=== PATIENT | female | born 1955 | race Caucasian/White ===

== ENCOUNTER 2020-02-16 07:23 | Day surgery (SDC) | payer BC ==
--- OUTSIDE RECORDS SUMMARY | 2020-02-16 07:30 | XMS REPORT | Clinical Summary ---
:1955 Author Organization [facility] Address [address] [place] [address] Care Team Providers Name Role Phone Provider, Unknown Primary Care Provider Unavailable Allergies Active Allergy Reactions Severity Noted Date Comments Codeine Rash Low 09/04/2008 Medications Medication Sig Dispensed Refills Start Date End Date Status clonAZEPAM (KlonoPIN) 1 Take 1 mg by 0 Active MG tablet mouth daily. cyanocobalamin (VITAMIN Take by mouth. 0 Active B-12) 1000 MCG tablet omeprazole (PriLOSEC) Take 20 mg by 0 Active 20 MG capsule mouth daily. magnesium oxide Take 400 mg by 0 Active (MAG-OX) 400 mg (241.3 mouth daily. mg magnesium) tablet ascorbic acid, vitamin Take 500 mg by 0 Active C, (VITAMIN C) 500 MG mouth daily. tablet thyroid,pork (CORK COMPOUNDER Take 75 mg by 0 Active THYROID ORAL) mouth daily. traMADoL (ULTRAM) 50 mg Take 50 mg by 0 Active tabletIndications: mouth every 6 acute pain (six) hours as needed for moderate pain .acute pain. 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 Encounters Date Type Specialty Care Team Description 01/13/2020 Hospital Encounter Radiology Yanez, Aidee Bila teral thoracic back A., CORK COMPOUNDER pain, unspecified Mirza Lan chronicity MD Valdemar 01/12/2020 Travel 01/08/2020 Orders Only Transplant Yanez, Aidee Bilateral thoracic back A., CORK COMPOUNDER pain, unspecifi ed chronicity (Neris kelsey Dx) 01/07/2020 Office Visit Transplant Edyta, Rafik Hyperlipidem Valdemar barreto MD unspecified Michele Salguero MD hyperlip idemia type (Primary Dx) 01/07/2020 Travel 01/02/2020 Hospital Encounter Radiology Mirza Lan MD 01/02/2020 Hospital Encounter Radiology Mirza Lan MD 12/30/2019 Telephone Transplant Mima Redding RN Referral - Hepatobiliary Txp 12/30/2019 Telephone Transplant Luna Garner, Referral - Hepatobiliary MA Txp after 02/15/2019 Social History Tobacco Use Types Packs/Day Years Used Date Never Smoker Smokeless Tobacco: Never Used Alcohol Use Drinks/Week oz/Week Comments Never Alcohol Habits Answer Date Recorded How often do you have a drink containing alcohol? Never 12/23/2018 How many drinks containing alcohol do you have on a typical Not asked day when you are drinking? How often do you have six or more drinks on one occasion? No t asked Sex Assigned at Date Recorded Not on file Job Start Date Occupation Industry Not on file Not on file Not on file Travel History Travel Start Travel End No recent travel history available. Last Filed Vital Signs Vital Sign Reading Time Taken Comments Blood Pressure 159/66 01/07/2020 2:52 PM CDT Pulse 73 01/07/2020 2:52 PM CDT Temperature 36 C (96.8 F) 01/07/2020 2:52 PM CDT Respiratory Rate 17 01/07/2020 2:52 PM CDT Oxygen Saturation 99% 01/07/2020 2:52 PM CDT Inhaled Oxygen Concentration - - Weight 59.4 kg (131 lb) 01/13/2020 5:42 PM CDT Height 162.6 cm (5' 4") 01/13/2020 5:42 PM CDT Body Mass Index 22.49 01/13/2020 5:42 PM CDT Plan of Treatment Health Maintenance Due Date Last Done Comments BREAST CANCER SCREENING 2003 COLONOSCOPY SCREENING 2003 SHINGLES VACCINES (#1) 2003 65+ PNEUMOCOCCAL VACCINE (1 of 2 - PCV13) 2018 INFLUENZA VACCINE 03/25/2020 Procedures Procedure Name Priority Date/Time Associated Diagnosis Comme nts MRI LUMBAR SPINE W Routine 01/13/2020 6:30 Bilateral thoracic Results for this WO CONTRAST PM CDT back pain, procedure are i n unspecified the results chronicity section. ESTIMATED GFR Routine 01/13/2020 5:57 Results fo r this PM CDT procedure are i n the results section. POC CREATININE Routine 01/13/2020 5:57 Results f or this PM CDT procedure are i n the results section. MRI ABD/PELVIC Routine 12/25/2019 8:58 Results f or this EXTERNAL STUDY AM CDT procedure are in the results section. CT ABD/PELVIC Routine 12/18/2019 9:05 Results fo r this EXTERNAL STUDY AM CDT procedure are in the results section. after 02/15/2019 Results MRI Lumbar Spine W Wo Contrast (01/13/2020 6:30 PM CDT) Specimen Narrative Performed At This result has an attachment that is no t available. EXAMINATION: MRI LUMBAR SPINE W WO CONTRAST [facility] CLINICAL HISTORY: M54.6 Pain in thoracic spine, back p ain COMPARISON: None TECHNIQUE: Multiplanar multisequence non enhanced and contrast enhanced MRI examination was performed of the lumbar spine. FINDINGS: There are 5 non-rib bearing lumbar type vertebrae. No fracture. No subluxation. No suspicious osseous lesions. No marrow edema. Conus medullaris terminates at the level of L2. No abn ormal enhancement. Evaluation of the visualized soft tissue s demonstrates no mass, adenopathy or aneurysm. Axial images through the disc spaces demonstrate the f ollowing: L1-L2: No significant posterior disc dis ease, spinal canal, subarticular zone, or neural foraminal stenosis. L2-L3: No significant posterior disc dis ease, spinal canal, subarticular zone, or neural foraminal stenosis. L3-L4: Mild bilateral subarticular zone stenosis secondary to small disc bulge and facet arthropathy. No significant spinal canal or neural foraminal stenosis. L4-L5: Small disc bulge with superimpose d small central disc protrusion and mild facet arthropathy with ligament flavum infolding contributes to moderate bilateral subarticular zone stenosis with contac t of the traversing L5 nerve roots, with potential compression of the traversing right L5 n erve root. There is mild right greater than left neural foraminal stenosis secondary to small disc bulge and endplate osteophytes. There is mild spinal canal stenosis. L5-S1: No significant posterior disc dis ease, spinal canal, subarticular zone, or neural foraminal stenosis. IMPRESSION: 1. Degenerative changes of the lumbar spine, notably a t L4-5 as detailed above. [id number] Procedure Note Hm Interface, Radiology Results Incoming - 01/13/2020 7:47 PM CDT EXAMINATION: MRI LUMBAR SPINE W WO CONTRAST CLINICAL HISTORY: M54.6 Pain in thoracic spine, back pain COMPARISON: None TECHNIQUE: Multiplanar multisequence non enhanced and contrast enhanced MRI examination was performed of the lumbar spine. FINDINGS: There are 5 non-rib bearing lumbar type vertebrae. No fracture. No subluxation. No suspicious osseous lesions. No marrow edema. Conus medullaris terminates at the level of L2. No abnormal enhancement. Evaluation of the visualized soft tissue s demonstrates no mass, adenopathy or aneurysm. Axial images through the disc spaces dem onstrate the following: L1-L2: No significant posterior disc dis ease, spinal canal, subarticular zone, or neural foraminal stenosis. L2-L3: No significant posterior disc dis ease, spinal canal, subarticular zone, or neural foraminal stenosis. L3-L4: Mild bilateral subarticular zone stenosis secondary to small disc bulge and facet arthropathy. No significant spinal canal or neural foraminal stenosis. L4-L5: Small disc bulge with superimpose d small central disc protrusion and mild facet arthropathy with ligament flavum infolding contributes to moderate bilateral subarticular zone stenosis with contact of the traversing L5 nerve roots, with potentia l compression of the traversing right L5 n erve root. There is mild right greater than left neural foraminal stenosis secondary to small disc bulge and endplate osteophytes. There is mild spinal canal stenosis. L5-S1: No significant posterior disc dis ease, spinal canal, subarticular zone, or neural foraminal stenosis. IMPRESSION: 1. Degenerative changes of the lumbar sp ine, notably at L4-5 as detailed above. [id number] Performing Organization Address City/State/Zipcode Phone Number [facility] [address] [place] [address] Estimated GFR (01/13/2020 5:57 PM CDT) Estimated GFR 90 mL/min/1.73 [facility] Comment: m2 [facility]OSPITAL Catergory Units Interpretation G1 >=90 Normal or high G2 60-89 Mildly decreased G3a 45-59 Mildly to moderately decreas ed G3b 30-44 Moderately to severely decre ased G4 15-29 Severely decreased G5 <15 Kidney failure The eGFR was calculated using the Chronic Kidney Disea se Epidemiology Collaboration (CKD-EPI) equation. Interpretation is based on recommendations of the National Kidney Foundation-Kidney Disease Outcomes Jhonny lity Initiative (NKF-KDOQI) published in 2014. Specimen Blood Performing Organization Address City/[facility]/Zipcode Phone Number [facility] DEPARTMENT OF PATHOLOGY AND [address] [place], [place] [address] [facility] [address] [place] [address] POC creatinine (01/13/2020 5:57 PM CDT) POC creatinine 0.7 0.5 - 0.9 [facility] Comment: mg/dl HOSPITAL Manager [employer] Name: Mingo Seymour Device ID: [id number] Specimen Blood Performing Organization Address [facility]/Zipcode Phone Number [facility] DEPARTMENT OF PATHOLOGY AND [address] [place] [phone] [facility] [address] [place] [id number] MRI Abd/Pelvic External Study (12/25/2019 8:58 AM CDT) Specimen Narrative Performed At This exam was not acquired at a [facility] facility and has not been [facility] interpreted by a [facility] Provider. T he exam was imported into our imaging system. Performing Organization Address [facility] Phone Number [facility] [address] [place] [address] CT Abd/Pelvic External Study (12/18/2019 9:05 AM CDT) Specimen Narrative Performed At This exam was not acquired at a [facility] facility and has not been [facility] interpreted by a [facility] Provider. T he exam was imported into our imaging system. 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
--- OUTSIDE RECORDS SUMMARY | 2020-02-16 07:32 | XMS REPORT | Continuity of Care Document ---
:1955 Author Organization [facility] t Address [facility] [place] [address] Care Team Providers Name Role Phone CHAY Primary Care Physician Unavailable IVAN Attending Clinician Unavailable SYSTEM, NOT IN Attending Clinician Unavailable SKYE HENAO Attending Clinician Unavailable СВЕТЛАНА Attending Clinician Unavailable REID Attending Clinician Unavailable Skye Henao MD Attending Clinician Robina DENIS, R Attending Clinician Unavailable Valdemar Lan MD Attending Clinician Noemy MASSEY Attending Clinician Flaco THOMAS Attending Clinician Carolin Espitia RN Attending Clinician IRENE HERNANDEZ Attending Clinician Unavailable Irene Hernandez MD Attending Clinician Ivan MASSEY Attending Clinician Chay MASSEY Attending Clinician CHAY Attending Clinician Unavailable Charlie DENIS Attending Clinician Unavailable Elvin DENIS Attending Clinician Unavailable FLACO Attending Clinician Unavailable Devon SAHU, S Attending Clinician HERMELINDA Attending Clinician Unavailable Hermelinda MASSEY Attending Clinician Fontillas PT Attending Clinician Patrick COLLAZOP Attending Clinician Kenneth KAHN Attending Clinician Unavailable Kenneth Kahn RN Attending Clinician Unavailable Lilliam Yanez NP Attending Clinician Efren Paul NP Attending Clinician Vahid DENIS Attending Clinician Unavailable Pascual ACUNA Attending Clinician Unavailable Cheikh Cueto MD Attending Clinician IRENE HERNANDEZ Admitting Clinician Unavailable Payers Payer Name Policy Type Policy Number Effective Date Expiration Date S sher[place] [id number] 2016 POS 00:00:00 BCBSBCBS xxxxxxxxxxxx 2015 [place] CHOICE 00:[place]:00 [employer] PPO/FEDERAL EMPL PPOxxxxxxxxxxx 2015-Pres entPPO Problems Condition Condition Condition Status Onset Resolution Last Treating Co mments Source Name Details Category Date Date Treatment Clinician Date Pancreatic Pancreatic Disease Active 0 M D cancer cancer 02-02 Anderso 00:00: n 00 Cardiac Cardiac Disease Active murmur murmur 01-14 Anderso 00:00: n 00 Hypothyroi Hypothyroi Disease Active 0 M D dism dism 01-14 Anderso 00:00: n 00 Fatty Fatty Disease Active liver liver 01-14 Anderso 00:00: n 00 Mass of Mass of Disease Active Overview: pancreas pancreas 01-14 Added Kamran o 00:00: automatic n 00 ally from request for surgery [id number] Hyperlipid Hyperlipid Disease Active Overview : MD rangel emia 7- ICD10 Anderso 00:00: Diagnosis n 00 Term [place] Hand UtilityIC D10 Diagnosis Term [place] Hand Utility Alopecia Alopecia Disease Active Overview: 3-13 ICD10 Anderso 00:00: Diagnosis n 00 Term [place] Hand UtilityIC D10 Diagnosis Term [place] Hand Utility Allergies, Adverse Reactions, Alerts Allergy Allergy Status Severity Reaction(s) Onset Inactive Treating Comm ents Source Name Type Date Date Clinician Codeine Propensi Active Rash [place] ty to 3-13 Methodi adverse 00:00: st reaction 00 s to drug Family History Family Member Diagnosis Comments Start Date Stop Date Source Natural father Prostate cancer MD Liane caba Natural father Skin cancer MD Andrew on Social History Social Habit Start Date Stop Date Quantity Comments [facility] Std Drinks [facility] Meth odist Alcohol Binge Sex Assigned At MD Andrew on Exposure to Not sure MD Vines SARS-CoV-2 (event) Tobacco use and 2020-02-03 2020-02-03 Never used MD Andrew on exposure 00:00:00 00:00:00 Alcohol intake 2020-02-03 2020-02-03 Lifetime MD Guerra n 00:00:00 00:00:00 non-drinker (finding) History SDCA 2018-12-23 2018-12-23 1 [place] Meth odist Alcohol Frequency 00:00:00 00:00:00 Smoking Status Start Date Stop Date Source Never smoker MD Vines Medications Ordered Filled Start Stop Current Ordering Indication Dosage Frequency Signature Comments Components Source Medication Medication Date Date Medication? Clinician (SIG) Name Name ascorbic 2020-0 Yes 500mg Take 500 MD acid 8-11 mg by Anderso (VITAMIN C) 19:14: mouth. n 500 mg 08 tablet traMADol 2020-0 Yes 50mg Take 50 mg MD (ULTRAM) 50 8-11 by mouth. And erso mg tablet 19:14: n 08 thyroid 2020-0 Yes 75mg Take 75 mg MD (ARMOUR 8-11 by mouth. Anderso THYROID) 15 19:14: n mg tablet 08 ALPRAZolam 2020-0 Yes .5mg Take 0.5 MD (XANAX) 0.5 8-11 mg by Anderso mg tablet 19:14: mouth n 08 nightly as needed. melatonin 3 2020-0 Yes 10mg Take 10 mg MD mg tablet 8-11 by mouth Kamran o 19:14: at n 08 bedtime. magnesium 2020-0 2020- No Take by citrate -11 08-11 mouth Anderso solution 19:13: 00:00 daily as n 59 :00 needed. Drink the content of one bottle (296 mL) orally as directed prior to surgery for bowel preparatio n. HYDROcodone 2020-0 Yes Pancreatic 1{tbl} Take 1 MD -acetaminop 8-11 cancer tablet by A maral sanderson ([place]) 00:00: mouth n 5 mg-325 mg 00 every 6 per tablet (six) hours as needed (cancer pain). tiZANidine 2020-0 Yes TAKE 1 MD (ZANAFLEX) 7-14 TABLET BY Brandon rso 4 mg tablet 00:00: MOUTH n 00 THREE TIMES DAILY NEEDED FOR 30 DAYS clonAZEPAM 2020-0 Yes 1mg QD Take 1 mg [place] (KlonoPIN) 7-07 by mouth Metho di 1 MG tablet 14:17: daily. st 46 cyanocobala 2020-0 Yes Take by Peter ston min 7-07 mouth. Methodi (VITAMIN 14:17: st B-12) 1000 46 MCG tablet omeprazole 2020-0 Yes 20mg QD Take 20 mg [place] (PriLOSEC) 7-07 by mouth Metho di 20 MG 14:17: daily. st capsule 46 magnesium 2020-0 Yes 400mg QD Take 400 Peter ston oxide 7-07 mg by Methodi (MAG-OX) 14:17: mouth st 400 mg 46 daily. (241.3 mg magnesium) tablet ascorbic 2020-0 Yes 500mg QD Take 500 [place] acid, 7-07 mg by Methodi vitamin C, 14:17: mouth st (VITAMIN C) 46 daily. 500 MG tablet thyroid,por 2020-0 Yes 75mg QD Take 75 mg Lass[place] k (SYSTEMS SPEC 7-07 by mouth Methodi THYROID 14:17: daily. st ORAL) 46 traMADoL 2020-0 Yes acute pain 50mg Q6H Take 50 mg [place] (ULTRAM) 50 7-07 by mouth Meth yuly mg tablet 14:17: every 6 st 46 (six) hours as needed for moderate pain .acute pain. 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 cap docusate 2014-0 2020- No 1{tbl} Take 1 MD sodium 7-24 08-11 tablet by Mari (Stool 00:00: 00:00 mouth n Softener) 00 :00 daily. 100 mg capsule Vital Signs Vital Name Observation Time Observation Value Comments Source WEIGHT 2020-02-03 14:21:00 58.106 kg WEIGHT 2020-02-03 14:21:00 58.106 kg WEIGHT 2020-01-27 12:39:00 59.1 kg WEIGHT 2020-01-27 12:39:00 59.1 kg WEIGHT 2020-01-16 13:54:00 59.376 kg WEIGHT 2020-01-16 13:54:00 59.376 kg Body weight 2020-02-03 19:21:00 58.106 kg Claude annika BMI 2020-02-03 19:21:00 22.90 kg/m2 MD Arce annika Systolic blood 2020-02-03 19:08:59 121 mm[Hg] pressure Diastolic blood 2020-02-03 19:08:59 76 mm[Hg] MD Rob derson pressure Heart rate 2020-02-03 19:08:59 72 /min Claude annika Body temperature 2020-02-03 19:08:59 36.61 Jovanna MD Santos nderson Respiratory rate 2020-02-03 19:08:59 18 /min MD Santos ndemehrdadon Oxygen saturation in 2020-02-03 19:08:59 100 /min MD Vines Arterial blood by Pulse oximetry Body height 2020-01-16 18:54:00 159.3 cm Claude annika Body height 2020-01-13 17:42:00 162.6 cm [place] [employer] Body weight 2020-01-13 17:42:00 59.421 kg [place] [employer] BMI 2020-01-13 17:42:00 22.49 kg/m2 [place] [employer] [facility] Systolic blood 2020-01-07 14:52:00 159 mm[Hg] [place] [employer] [place] pressure Diastolic blood 2020-01-07 14:52:00 66 mm[Hg] [place] [employer] pressure Heart rate 2020-01-07 14:52:00 73 /min [place] [employer] [facility] Body temperature 2020-01-07 14:52:00 36 Jovanna [place] [employer] Respiratory rate 2020-01-07 14:52:00 17 /min [place] [employer] [facility] Oxygen saturation in 2020-01-07 14:52:00 99 /min [place] [employer] Arterial blood by Pulse oximetry Procedures Procedure Date / Time Performing Clinician Source Performed CYTOLOGY IMAGE-GUIDED FNA 2020-01-27 19:02:00 Radha Morgan INTERPRETATION Lindsey ENDOSCOPY NOTE RESULTS 2020-01-27 18:30:10 MD Danielle Morganrson Lindsey UPPER GASTROINTESTINAL 2020-01-27 18:29:00 MD Danielle Morganrson ENDOSCOPY OF ESOPHAGUS, Lindsey STOMACH, OR DUODENUM ANDJ ADJACENT STRUCTURES, WITH ENDOSCOPIC ULTRASOUND EXAMINATION HC COVID19 AUTOMATED PCR 2020-01-25 15:48:[address] CHEST ABDOMEN PELVIS W 2020-01-16 15:29:09 Tiffanie Oh MD WO CONTRAST POC CREATININE 2020-01-16 15:04:00 Tiffanie Oh MD COMPLETE BLOOD COUNT W/ 2020-01-16 12:27:00 Tiffanie Oh MDrson INDICES COMPREHENSIVE METABOLIC 2020-01-16 12:27:00 Tiffanie Oh MDrson PANEL CANCER ANTIGEN 19-9 2020-01-16 12:27:00 Tiffanie Oh MD PROTHROMBIN TIME 2020-01-16 12:27:00 Tiffanie Oh MD PARTIAL THROMBOPLASTIN TIME 2020-01-16 12:27:00 Tiffanie Oh MD TYPE AND SCREEN 2020-01-16 12:27:00 Tiffanie Oh MD HEMOGLOBIN A1C 2020-01-16 12:27:00 Tiffanie Oh MD GLUCOSE LEVEL 2020-01-16 12:27:00 Tiffanie Oh MD ELECTROLYTE PANEL 2020-01-16 12:27:00 Tiffanie Oh MD Andjolantao n SERUM CREATININE 2020-01-16 12:27:00 Tiffanie Oh MD .GLOMERULAR FILTRATION RATE 2020-01-16 12:27:00 Tiffanie Oh MD CALCIUM LEVEL TOTAL 2020-01-16 12:27:00 Tiffanie Oh MD Claudemitchel roblero ALBUMIN LEVEL 2020-01-16 12:27:00 Tiffanie Oh MD ALKALINE PHOSPHATASE 2020-01-16 12:27:00 Tiffanie Oh MD ALANINE AMINOTRANSFERASE 2020-01-16 12:27:00 Tiffanie Oh MD ASPARTATE AMINOTRANSFERASE 2020-01-16 12:27:00 Tiffanie Oh TOTAL PROTEIN 2020-01-16 12:27:00 Tiffanie Oh MD FRACTIONATED BILIRUBIN 2020-01-16 12:27:00 Tiffanie Oh MD derson ABORH 2020-01-16 12:27:00 Tiffanie Oh MD ANTIBODY SCREEN 2020-01-16 12:27:00 Tiffanie Oh MD BLOOD UREA NITROGEN 2020-01-16 12:27:00 Tiffanie Oh MD Claude son CLOT EXPIRATION DATE 2020-01-16 12:27:00 Tiffanie Oh MD Brandon rson TMP INTERPRETATION ANTIBODY 2020-01-16 12:27:00 Tiffanie Oh MD SCREEN NEGATIVE CONFIRM ABORH TYPE 2020-01-16 12:26:00 Tiffanie Oh MD Kamran on HC 2019-NCOV COVID-19 2020-01-14 23:36:00 Tiffanie Oh MD And erson MRI LUMBAR SPINE W WO 2020-01-13 18:30:00 Mirza Lan CONTRAST POC CREATININE 2020-01-13 17:57:00 Mirza Lan ESTIMATED GFR 2020-01-13 17:57:00 Mirza Lan OSI MRI ABDOMEN 2019-12-26 04:41:48 Kayode Cueto MD Kamran on MRI ABD/PELVIC EXTERNAL 2019-12-25 08:58:00 Mirza [address]Y OSI [address] ABDOMEN 2019-12-19 04:42:11 Kayode Cueto MD Kamran on CT ABD/PELVIC EXTERNAL 2019-12-18 09:05:00 Mirza Lan STUDY OSI NUCLEAR DIAGNOSTIC EXAM 2019-12-18 04:42:[address], MD OSI US ABDOMINAL COMPLETE 2019-12-17 04:42:46 Kayode Cueto MD Plan of Care Planned Activity Planned Date Details Comments Source Future Scheduled 2020-03-25 INFLUENZA VACCINE [place] cyndi [employer] [facility] Test 00:00:00 [code = INFLUENZA VACCINE] Future Scheduled 2018 65+ PNEUMOCOCCAL [place] [employer] [facility] Test 00:00:00 VACCINE (1 of 2 - PCV13) [code = 65+ PNEUMOCOCCAL VACCINE (1 of 2 - PCV13)] Future Scheduled 2003 BREAST CANCER [facility] thodist Test 00:00:00 SCREENING [code = BREAST CANCER SCREENING] Future Scheduled 2003 COLONOSCOPY SCREENING Ho michelle [employer] [facility] Test 00:00:00 [code = COLONOSCOPY SCREENING] Future Scheduled 2003 SHINGLES VACCINES (#1) H justine [facility] Test 00:00:00 [code = SHINGLES VACCINES (#1)] Encounters Start End Encounter Admission Attending Care Care Encounter Source Date/Time Date/Time Type Type Clinicians Facility Department ID 2020-02-03 Outpatient MDA MDA [id number] 15:54:58 Anderso n 2020-01-27 Outpatient DESHPANDE, MDA MDA [id number] 12:56:49 WILMER Anderso n 2020-01-27 Outpatient DESHPANDE, MDA MDA [id number] 12:56:49 WILMER Anderso n 2020-01-13 Outpatient SYSTEM, MDA MDA [id number] 10:49:58 PROVIDER Kamranjolanta hanna 2020-01-05 Outpatient MDA MDA [id number] 09:22:54 Anderso cyndi 2020-04-15 2020-04-15 Outpatient EL SMAGLO, MDA MDA [id number] 00:00:00 00:00:00 CINDY hanna 2020-04-14 2020-04-14 Outpatient BENJAMIN CAGLE MDA MDA [id number] 00:00:00 00:00:00 Kamran hanna 2020-04-14 2020-04-14 Outpatient EL BENJAMIN SOTOMAYOR MDA MDA [id number] 00:00:00 00:00:00 Kamran o cyndi 2020-02-26 2020-02-26 Outpatient EL REID, MDA MDA [id number] 00:00:00 00:00:00 FATOU Brandon rso n 2020-02-24 2020-02-24 Outpatient EL REID, MDA MDA [id number] 00:00:00 00:00:00 FATOU Brandon rso n 2020-02-03 2020-02-03 Outpatient EL SMAGLO, MDA MDA [id number] 13:44:46 15:58:16 CINDY Kamran o n 2020-01-27 2020-01-27 Outpatient EL BONILLA MDA Mahesh/Hep/Nu [id number] 12:00:00 15:59:00 lul HERNANDEZ 2020-01-26 2020-01-26 Outpatient BRITTANY GAONA, MDA MDA [id number] MD 07:41:56 07:41:56 LUZ Taylor rso n 2020-01-25 2020-01-25 Outpatient BRITTANY GAONA, MDA MDA [id number] MD 10:28:10 10:49:16 KEENAARISTIDES Taylor rso n 2020-01-19 2020-01-19 Outpatient TIFFANIE OH MDA MDA [id number] MD 12:49:49 12:49:55 Kamran o n 2020-01-19 2020-01-19 Outpatient BRITTANY SHEN, MDA MDA [id number] MD 10:09:57 10:23:18 HOLLIE Kamran o n 2020-01-16 2020-01-19 Outpatient TIFFANIE CARNEY MDA MDA [id number] 14:53:03 07:58:51 Kamran o n 2020-01-16 2020-01-16 Outpatient TIFFANIE CARNEY MDA MDA [id number] 08:06:09 23:59:00 Kamran o n 2020-01-16 2020-01-16 Outpatient BRITTANY GAONA, MDA MDA [id number] MD 13:31:55 15:06:05 KEENAARISTIDES Taylor rso n 2020-01-16 2020-01-16 Outpatient TIFFANIE CARNEY MDA MDA [id number] 07:06:39 08:05:00 Kamran o n 2020-01-16 2020-01-16 Outpatient EL MDA MDA [id number] 07:05:32 07:06:23 Kamran o n 2020-01-16 2020-01-16 Outpatient TIFFANIE CARNEY MDA MDA [id number] 00:00:00 00:00:00 Kamran o n 2020-01-14 2020-01-14 Outpatient BRITTANY KAHN, MDA MDA [id number] 18:30:49 18:52:26 TU Kamran o n 2020-01-13 2020-01-13 Outpatient MILLIE, [facility] [id number] [place] 00:00:00 00:00:00 MIRZA Stewart i 2020-01-10 2020-01-10 Outpatient MDA MDA [id number] MD 23:26:22 23:26:22 Kamran o n 2020-01-10 2020-01-10 Outpatient MDA MDA [id number] MD 23:26:21 23:26:21 Kamran o n 2020-01-10 2020-01-10 Outpatient MDA MDA [id number] MD 23:26:20 23:26:20 Kamran o n 2020-01-10 2020-01-10 Outpatient MDA MDA [id number] MD 23:26:17 23:26:17 Kamran o n 2020-01-10 2020-01-10 Outpatient MDA MDA [id number] MD 23:26:17 23:26:17 Kamran o n 2020-01-07 2020-01-07 Outpatient MILLIE, [facility] [id number] [place] 00:00:00 00:00:00 MIRZA 678 Method i 2020-01-02 2020-01-02 Outpatient [facility] [id number] [place] 00:00:00 00:00:00 RAFIK 000 Method i 2020-01-02 2020-01-02 [id number] [place] 00:00:00 00:00:00 MIRZA 028 Method i 2019-08-26 2019-08-26 [facility] [id number] 12:01:00 23:59:00 Encounter Cheikh Pratt [id number] Aniwa [id number] Bryant [id number] Results Test Description Test Time Test Comments Results Result Comments Source Cytology Image-Guided FNA Interpretation 2020-01-28 22:09:00 Test Item Value Reference Range Interpretation Comme nts Gross h8zclYRtUAEei5njUCQlEyEbRAADk9miv066lNRnQSzaSjAjIcP7yJCqCVCaqGEzw9G4EHepeTMxYeLY pdvwwTt2a9eaV9pdpz4sMX0yYwIzARQkEWZsSVTsvqXnKTLgnREjSC2idqCKg55bpko6t8nzQZgjhJ7s QVQuQMDskDTpz3O3JYfwfTCtBREYu4YezKGhJN5sxoi Description 0w6rzNFbvt5ovc9YeAmReDGDmPYAlFMSfqbUzTCJupCUrHG1holFexos1c1adEWOwXh7yIESdaqlcL0q jkzSarPWrKjKazVOsP155oqoeudj9m6lqUFWhYk6evCmtI7sbeyFwtOFxZiNroFRzCQCcrRNXfEWqalO dkWI7jYdtUuHfOMErm33xzatpX0tqyqRksRJdSrCcpO (test code = UqF0ekRu4iZ040XBDtOIqvo0wga1SbVqObCVMtSXPuFVSaaeMtRTQjI13uKVKHN179XLVqENHtMXLjn4 bgf1jcD3tbdeVipXXpYyTmaRSxZDAaIQd7rX0Xm6ppi3lvdoYdbZY1OZWiUWWhV3QyIU8iFRGveGYcK1 lbVTNcKPjapnNqrfT1HJTdpHAqPEpehpNbApHiS8MdX [id number]) Y3gJUgjdEPdEhQ2SPTbUHB9JOyaTDAtZMjxGxj6YBN7D8slHLK7Z2mpggMdofXhZNKkxDO5HxhbexMdR kqvN8LpWR07HSggwVQeHpd3XJHgZQr7FIzpAJIcRPBeGpu4WMj4H5puYYXiWEPhG3UySA1nPVGuHgl4T JFlRNzzawIbJHL2NPfmLSUxRIQ8RUVorIHxOwo7FIHt PLR2X7fpbaQyamA1Y3wogLSrFFZjT2zwEQHzZFzgQ0ShJC0nJRgbTyu0WYK1JVrcmqJrYDf1ZRlbSPOe YQo4MSDhfXMjVeR2KCEuHDN5ZLtfsoElkqV1MClulURtODrgZ6srLMXqELxiS9DlTO2dCMsfKsx6UPLf XwwkjtTiEcCxKXxvUHRwVmKxKEYydVYaYtT6OSHnTQH aCFruxkNyvdFwNBqopEDeZeS0T6oaBTFvCNSzD6VaUA5uUPNnTgq9HHU7BOtepsBtWYrifcZeygVrDfe 7ICF7JYf9Hlzkn5C4eVKwyUXrhFhpotEtpMHyBMxzIhWiI719GLXaTHuiOHNkszqnShf5o9jiFjTrUCP siC2iDWJ7nCkffkYkfZJkMMbmXjT6M489DQS3VDgkEP OvmvmjFDt2s2akWxGjXLNlvG4mJVX3dY7UIkndPHBiqpdpNWr8KWcdJKYxgmcjApJ0SResFZAczIl6SY atRWZaarB6GabcXZInfGjhZWwjQTFoFznrACmyJBOkRGC1PwNnAGZfz7Glspl6AtXkMgJeRKBYXsichO OhBIX7YXF5JoJyXZTrVoezWZXeWB6lrEweaSh8yXaxZ BTwavI6bNNpXJjvv0njUWL5u5vbqglrTRBaHLdeBa0heMKadYqbAeOgMLWnVYc9xS48FQIqxC3arMYyP Yx7PMXncrKchVwvxJ8cPrQnIFIIjFQkcF4rzgShnKZvD1WmUEA5TOPmrqFeMEDaJuTqRCToiedtVVIZT HEeK7YabI8tT8rwGPVpRRQzhaKzKEAmjKrphQ4dFeIM UAtnUDFxPKPLZYxbGHOqj8JhCYZcibAHBFIcK0MugYZjQYxyR7LbTTfzNSKcyo3ioVvuJjAgNK6iSO0j YGOzBKSxPjCvVRUtgarpLQKzG6s1XZlwCbkcBE4cZQszSaXyLA1yRZSqznURpL2vZTqeaVIyCTVhVJIg rLKdoCCrf3Gag6HmB5uwWD8dAFDsjNMfC6lgh4YoUF8 wFECyMKNnt6KfP1GbbVOewXHhuWApcNJutFDsbYHjuTKdQLZ oDGigSYHhJgLjpYTwhQneQFY1Ik9= Immediate Adequate cellularity, favor malignant Assessment (test code = 9837) Major MALIGNANT A Classificati on (test code = 9839) Diagnosis j5kzeEYdJBYzwLH7NTVdDTCgx4pnb5UvjRIjrAVkUVyimZVxptGnxw40ePQ7kX50DG0mKUVfZyQ0IZRt pgT4Avq8XTIpRTHzrIWxS474k9mpg5phxvVgwPL2fHiqGPJrMLQbYRqpZXAsGhInAL4fDHUmP1ViCRAv ODrtQDWyPUSuvfItuoApMSokEAOfmQogUFVsn267NWG (test code = pZswoOORiuGt6FqBojCcrUlUqJUFKZ4JPNSIJPRMSARQQFrDETPPXHANRQBHCZ6IDRtVWEn8DCWNQLHH LGQ6ZG5COH8kSWBUlng0= 34) Comment l7dnqXAaUJCuwGO5XDZlGIQtd3ogp9XmkIHacQPrRIggoZFwzpMgmi67hBX3xO58YU3uGRLsMhH7PSFu pgR1Pjl2QWUtHYDzmAAbG510i0csp8sohfAqvXA8uWztQLGqWCJgYGsnPNZyZdJfLIvkHMWfoRmkRzcx L6ouhFKlwEQtOQUjf52qpGVfdt7wOADxroDusWF8fF8 (test code = zhET3r0psspInBC3ym6ycTtS1kENzPbakGToaUCwjX93xs9qiRugdC XJ9 9835) Retained/Bio s2conCXmOQUsiKC5BEZpGDZoc9dyn0RwnOOsoGOoQIzvgURzyoWqfn42tKJ3nN60IL7uFBDoWiT9MVYc neF5Tjo8LOYuCFMwbWTsK403s7bxl7rymoSrtQP4gFuoMUNdTUQpCNyyMULvXaHsZsK8FGkzHAI1VVNe qnivrPrfYGLSvN2xTIJhe6Ayi84zYWFeWhJ8MWDlpqP marker ABSbbYABvg6UcTuDcSTEdmiynnYVqcZUtHRZby74gpkcieuTAPOU5jQ4qMmYlwDReRWgiPmUyGHebqfb pMIWZESqrJ5FiaRGAoO4dgavpHp4biAKqTC1SQSPWCQG9KH4dZBQjuiWOPSyuDGO4XWtfbr76QJB7x8a iqLBiDIquIksvhIZnxpG0GLtDGRRKMNcJFrGuXP4vNU Testing aWD1GRKEiKOjmtLVH5KEzuzBL6f9qquJDsg7w6ICvxRYL2pG7ks6burNQnTUzxNjnkzDWwfbT9SJuMTD KDMEyECzBmPJ2gCTgXB3VSKuX7TeT8TuH0GTwauYcsNizgnhCsoOVaKnExuU9axLaokO4jTvAoEWqkTE XjJylAFTUYLJvhXXBqg4OxD7K2XNHyCIbhq6szEFHdV (test code = Ontb2XkVWiJLOAHDR9HIN2erIW1GOjWZGJFF8iGaXO7BzmcfGZ6Yd50WASbSUUpeDOrJEprD668Hz61I YShHKgio6bpPOExHDcra9TfVEqUWWLCME6DTQ7obIS7ELpSTIWSCHpoQKB6AZtqbQI1u0orpZZje3h9I JyzDKZ9cTpteXHpyvurazZwJOVzivtxcDIykUejAGow 9838) FKXprEQjIWFeI61TLsVIJHNYD42GJZPTHTXDT1TPJ7oZSZE8LaqtaBW3QW8oICL0XLskXALaI68HHdAG GOZEM60KYFGCHAXGC9NKGNXNMOvUL8PUWT6DOFABWYTGUF0OJVeANpTAJZcIW8UCKA0WFDQAYSECGW5W ZyYyFUfDV1CWX3wWDGFsPUROFWTUMBReZrWXIM0dEUo 0Fe2hC1kaLBRdUbD0XjeiJsl3YRs2Emo6Do4jK5zbGJNgDtJ3FrjgAyl6AQs6LBHIMQBPZI7NLEPWI73 TMSXJNBOXF2OGCKWCQdLTGXSPO63KNPATPEBBI4NMD0fRHDLJEkOSBYUAC92MCECEMMQMW1TDCCHQGSI INbTEZwNOIU1SCMOFPROECD9KPWbYQgTeFLIGQ5INSq JER3nsVQVDMWVHPVLfFX8PyO== Informationa j3oohYJiJKOgkAWtApCuSMPvHHDcs0afPMUoeNCiVgZlKeXvGvGvQiqzkNXrRRPhLzUmw2qyz992mTXp y6nmDSBlXrV5lBRgESSnyAVdF319HWCvOKinh4xfc5ZuFPIvyBGkr1R5RZAJUWgnHXRQPLe6b4teNqPr HaS1mCHyMWbrM3gsgbSpoEZlSXXxBMr8qV47MHGdwA0 l Points qtJHzVYhijgWdAzP2IPyySCYiUmC6LJOexVNaTNStH4oaXDDiGOiuGPFyBJlqeVKfWTY7pCvll3U7oAT yaYDecBefLbBvPaMqVbCEc0FuRPg3cTjmQ0ApMAJtJkD0gMAeLPIqDGjcUFMzUOSonwI3uB09GUenijL 4uXNnz2Lyi10xf828rW7knKErRMN5VGFnPRRpkRIkCA (test code = AaTMI4HTUnoOVnN2tsPDMeMK4ulqgqWMdqUHjuUUGnjGW6SWNnyHScR4VyKNJfONuoVTHgazx0PkWbUz 2vfSYrhGzmLZcnt5cls5ioqEVtUpe5YBGqXaWkNfvxPPmrw1Mbw0voAKRjmt5hFFZ7iDVyrDnnz2Q9yK KlYMVfyOCowzYgGFNtQaB7WJdzHB9wgb90IGEtYMY9k 9836) h2vhAMlxLvmvgNwvERyNRucH3UdFYNba466HXWiM2OuMQWtj1P8znSoDzBuZSPuaQF9dbI0WRPaHUw4m KFmirT2qyHpjOZbM3gxjO2yEFRaBW8zypfyi3qlICivFWudXKGtiFU8pdS0EHNkjFVyF3WpeS2qBIOzX VtyNONumxb6EmYcTu8nxKOfzUpqTQsyAfxcMXlpMFVo pkPsnoXclKkiOUCbUAHxSVgzRGBgXEqvGWWiODSbYaUjbTtvoGmenF3sGoEhYyArCSddTZ9nJTSmA2zx lPXcRVAfYIVwG8yyTjIpuW5qvXkjAYomgoU7XKogH73xSGB2TER4bxYiOQSsdnZaADAkWLVgNK3haIYk QDJaQKYcCP5zNZL8JGokoZTtJGCoZWJeDGGnz8HyPR4 pPKYrxQKoVJG8MWChe1YrG3QqXIR9ABOdoJ6vRUJxzOOCVFQDUEWDhuYoauPybtTAOMXsx0alG8ptRW0 pEMqwQo1fKSQbtcmdJAIcdMIjhkXhOBWqJKVcDTYey6AzAGtyjsSnxl45XRAsXR2ks1TfV5jznJOzyCg 1QCMyXZPgYJAbf7UyRYNxib85WIXxMcnqiMtvEUUiOt 1lTn5tSCPntjAtRPL7DxFOKB3rnxugaBVxpOyzyj0cKOGsXQvaYAKcSZXfHnMqvHSuWdLiGoFysFseaH xrDipxMjQaGLEqFSdkS5ldEqTpGkXiGlrmGEX7 Lab Abnormal Interpretati on (test code = 63794-8) AndersonENDOSCOPY NOTE [id number] 18:30:10CoLindsey Larios MD - 01/27/2020 1:30 PM CDTPatient Name: Khadijah GabrielGender: FemaleMRN: [id number]: 64Procedure Date No Time: 01/27/2020Instrument Name: [address] [facility],5101 [id number](s): TOM MYERSrocedreza Name: Upper EUSScope In: 1:53:58 PMScope Out: 2:45:41 PMTotal Procedure Duration Time 0 hours 51 minutes 43 seconds Patient Profile: This is a 64 year old female with a 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 Here for EGD EUS.Indications: Suspected solid pancreatic neoplasmMedications: Total IV Anesthesia (TIVA), [id number] Description: Pre-Anesthesia Assessment: - Prior to the procedure, a History and Physical was performed, and patient medications and allergies were reviewed. The patient's tolerance of previous anesthesia was also reviewed. The risks and benefits of the procedure and the sedation options and risks were discussed with the patient. All questions were answered, and informed consent was obtained. Prior Anticoagulants: The patient has taken no previous anticoagulant or antiplatelet agents. ASA Grade Assessment: III - A patient with severe systemic disease. After reviewing the risks and benefits, the patient was deemed in satisfactory condition to undergo the procedure. - The patient was placed in the left lateral position. Informed consent was obtained. Throughout the procedure, the patient's blood pressure, pulse, and oxygen saturations were monitored continuously. The Olympus [id number] ([id number]) linear echoendoscope - (12.6 mm dm) was introduced through the mouth, and advanced to the second part of duodenum. The Olympus GIF-[id number] ([id number]) upper endoscope - (9.9 mm dm) was introduced through the mouth, and advanced to the second part of duodenum. The upper EUS was accomplished without difficulty. The patient tolerated the procedure well.Findings: ENDOSCOPIC FINDING:: The upper third of the esophagus, middle third of the esophagus and lower third of the esophagus were endoscopically normal. The GEJ was noted at 39 cm. The gastric body, gastric antrum, cardia (on retroflexion) and gastric fundus (on retroflexion) were endoscopically normal. The duodenal bulb and second portion of the duodenum were endoscopically normal. ENDOSONOGRAPHICFINDING: : A round mass was identified in the pancreatic head. The mass was hypoechoic. The mass measured 35 mm by 25 mm in maximal cross-sectional diameter. The endosonographic borders were poorly-defined. The remainder of the pancreas was examined. The endosonographic appearance of parenchyma and the upstream pancreaticduct indicated duct dilation. The PD in the head measured 3.9 mm (mild dilation), 1.7 mm in the body and 1.1 mm in the tail. Fine needle aspiration for cytology was performed. Color Doppler imaging was utilized prior to needle puncture to confirm a lack of significant vascu lar structures within the needle path. Two passes were made with the 25 gauge needle ([employer]) using a transduodenal approach. A stylet was used. A javascript ui developer was present and performed a preliminary cytologic examination. The cellularityof the specimen was adequate. Final cytology results are pending. There was no sign of significant endosonographic abnormality in the common bile duct. The maximum diameter of the duct was 3.3 mm.Complications: No immediate complications. Estimated blood loss: None.Estimated Blood Loss: Estimated blood loss: none. Estimated blood loss was minimal.Post Procedure Diagnosis: - Normal upper third of esophagus, middle third of esophagus and lower third of esophagus. - Normal gastric body, antrum, cardia and gastric fundus. - Normal duodenal bulb and second portion of the duodenum. - Endosonography: - A mass was identified in the pancreatic head. Transduodenal fine needle tissue aspiration performed. - There was no sign of significant pathology in the common bile duct.Recommendation: - Await cytology results. - Observe patient's clinical course. - Discharge patient to home (ambulatory). - Patient has a contact number available for emergencies. The signs and symptoms of potential delayed complications were discussed with the patient. Return to normal activities tomorrow. Written discharge instructions were provided to the patient. - Resume previous diet. - Patient discharged to Recovery.Attending Participation: LINDSEY HERNANDEZ MD01/27/2020 2:48:55 PMThis report has been signed elec tronically.Number of Addenda: 0MD AndersonCOVID-19 (SARS-CoV-2) PCR-Asymptomatic [id number] 01:17:09 Test Item Value Reference Range Interpretation Comments COVID19 (SARS Not Detected Not Detected This test is a CoV-2) Result qualitative (test code = reverse-transcr iptase 06723-3) polymerase nellie n reaction (RT-PC R) developed for t he Freida BALTAZAR 680 0 system and inte nded for the detecti on of SARS CoV-2 RNA in human nasophary ngeal specimens from patients who me et COVID-19 clinic al and/or epidemiological criteria. This assay has been approv ed by the FDA for use only under Emergency Use Authorization ( EUA) in laboratories that have been CLIA-certified to perform moderate-comple xity and high-comple xity tests. The performance characteristics of this assay were verified by the Microbiology Laboratory at [facility]. Results must be interpreted within the context of all relevant clinic al and laboratory find ings and should not form the sole basis for a diagnosis or treatment decision.Epic Professional al controls are in cluded to assess for possible amplification inhibitors. If inhibition is detected, testi ng is repeated and if inhibition is confirmed the specimen is res ulted as "Invalid". "Inconclusive" results are due to partial amplifi cation of SARS-CoV-2 t argets and indicates l ow amounts of viru s present in the specimen at or near the limit of detection. Whe n an "Invalid" or "Inconclusive" results occur, it is recommended to wait 3 days before submitting a ne w specimen for te sting if clinically indicated. COVID19 SARS SYSTEMS SPEC Swab Source (test code = 70841) COVID19 SARS Pre-Out of OR Indication (test Procedure code = 71475) MD VinesCT Chest Abdomen Pelvis with and without [id number] 16:23:52 Unusual pancreatic head mass. While qualitatively, it has a notably well-defined uniformly hypodense appearance that suggests a cystic lesion on postcontrast images, this lesion measures higher density than expected on precontrast images, with a similar density and appearance to background unenhancedpancreas on precontrast CT images, and on MRI, it does not show expected fluid signal characteristics. While this could still represent an unusual possibly predominantly solid mixed cystic and solid lesion of the pancreas, another consideration would be for a notably poorly enhancing pancreatic ductal adenocarcinoma that is unusually well-defined. Further assessment is needed with endoscopic ultrasound with biopsy. The mass is seen to abut the SMV. No evidence for distant metastatic disease. Nonspecific few sub-5 mm pulmonary nodules can be managed by short-term follow-up.Interface, Radiology Results In - 01/16/2020 11:26 AM CDTFULL RESULT:Examination: CT CHEST ABDOMEN PELVIS W WO CONTRAST, 01/16/2020 10:29 AMClinical History: Mass of pancreasIndication: new pancreas mass suspicious for pancreas cancer, need inti ail baseline CT chest abdomen pelvis for treatment planningComparison: Outside CT abdomen 12/18/2019 and outside MRI 12/25/2019Technique: CT of the abdomen was performed without intravenous contrast followed by CT of the chest, abdomen, and pelvis with intravenous contrast. Multiphasicdual-energy pancreas protocol, Siemens FLASHFindings: CT OF THE CHEST:Lymph Nodes:No adenopathy is seen in the axillary, mediastinal, or hilar regions. Heart/mediastinum: The heart size is within normal limits. No pericardial effusion identified. Lungs and pleura:Scarring bilateral lung apices.4 mm right apical nodule image 23 series 16 and 4 mm lateral right upper lobe nodule seen on image 39.Punctate nodule inferior left upper lobe image 96 series 16.These findings are nonspecific and can be managed by short-term follow-up in 3 months. Musculoskeletal:Degenerative changes of the spine. Soft tissues: Breasts:There are a few punctate nodular foci within the right breast are nonspecific, images 64, 66 of series 14. Advise correlation with mammograms. Lines and tubes: None.Thyroid:Nonspecific few h ypodensities within the thyroid gland may be indicative of goiter. CT OF THE ABDOMEN AND PELVIS:Nature of study: Baseline [facility] imaging evaluation Pancreas: There has been interim development since the prior CT examination of stranding in the peripancreatic fat near the pancreatic tail, image 48 series 11 and anterior to the pancreatic head image 61. There has also been interim development on the pancreatic parenchymal phase of relative hypodensity seen throughout the pancreatic neck body and tail. These findings are compatible with likely superimposed pancreatitis that has developed in the interim. This condition necessarily constrainsthe accuracy of staging.Hypodense very well- defined mass within the pancreatic head measuring 25 x 18 mm image 56 series 11 was 19 x 16 mm on the 12/18/2019 CT. While this mass shows qualitatively a rel atively homogeneous, "cystic" hypodensity, it measures on postcontrast portal venous phase images 48HU, higher than that expected for fluid (20 HU or less). On the recent MRI, it does not show fluid signal on T2-weighted imaging. On CT on the precontrast images, the mass measures 29 HU, on arterial phase 31 HU, on portal venous phase, 48 HU, and on the delayed phase, 42 HU. On precontrast images, the background pancreas measures 30 HU.There are findings of probably mild obstruction of the main pancreatic duct which measures 2-5 mm in diameter and no notable atrophy.Based on the findings on MRI, the lesion appears to be isointense to background pancreas on T2-weighted imaging, and mildly to moderat mohan hypointense to background pancreas on fat-suppressed T1-weighted images, nonfat-suppressed T1-weighted images, and postcontrast images. The findings are not typical for a cystic lesion which are usually notably T2 bright secondary to underlying fluid components or mucin. Internal blood products would be typically bright on T1-weighted images which is not the case here. While a notably unusual solid and cystic pancreatic cystic lesion is still a possible consideration, another consideration giventhe appearance on MRI and on precontrast CT, would be for a relatively poorly enhancing pancreatic ductal adenocarcinoma that is unusually very well-defined. Correlation would be advised with findings on endoscopic ultrasound and biopsy. Vascular (description in degrees of involvement or occlusion): Arterial: Hepatic arterial variant(s): No hepatic arterial variants.,Vessel involvement: Not applicable.Please note the findings above compatible with likely superimposed pancreatitis. This necessarily constrains and limits the utility of the findings of potential vascular involvement on this examination.Degrees of circumferential involvement of arterial structures by solid soft tissue (presenceof stranding will be noted).1. Celiac artery, None. But there is haziness that surrounds the celiac trunk2. Common Hepatic Artery, None . Ill-defined soft tissue stranding and thickening is adjacentto the common hepatic artery and origin. This is more prominent than before, but the findings of pancreatitis are also new since the prior study.3. Splenic Artery, None 4. Superior Mesenteric Artery, NoneVenous:Degrees of circumferential involvement of venous structures by solid soft tissue (presence of stranding will be noted).1. Portal Vein,None .2. Splenoportal-SMV confluence, None. 3. Splenic Vein, None 4. Superior Mesenteric Vein, </= 180 degrees. This is best seen on the arterial phase images, image 62 series 8. Hepatobiliary: Fatty changes of the liver?: No fatty changes are seen of the liver.No findings are seen that would be suspicious for liver metastases. Gallbladder is unremarkable. No biliary dilatation.Lymph Nodes:No suspicious brooke findings.Peritoneum:No findings are seen that would be suspicious for peritoneal metastases.Musculoskeletal:Mild degenerative changes of the spine.Lungs:Please see separate report above regarding findings in thechest/lungs. Gastrointestinal:Bowel is of normal caliber with no evidence of obstruction or adynamicileus. Stomach is nearly collapsedOther Solid Organs:Spleen, is unremarkable. Probably stable nodularity of the adrenal glands but monitoring is advised. No hydronephrosis. Simple appearing cystic lesion left renal upper pole.Other:Small hypodensity within uterus may represent a small fibroid. What may be the appendix is visualized on image 127 and is probably unremarkable. IMPRESSION:Unusual pancreatic head mass. While qualitatively, it has a notably well-defined uniformly hypodense appearance that suggests a cystic lesion on postcontrast images, this lesion measures higher density than expected on precontrast images, with a similar density and appearance to background unenhanced pancreas on precontrast CT images, and on MRI, it does not show expected fluid signal characteristics. While this could still represent an unusual possibly predominantly solid mixed cystic and solid lesion of the pancreas, another consideration would be for a notably poorly enhancing pancreatic ductal adenocarcinoma that is unusually well-defined. Further assessment is needed with endoscopic ultrasound with biopsy. The mass is seen to abut the SMV.No evidence for distant metastatic disease.Nonspecific few sub-5 mm pulmonary nodules can be managed by short-term follow-up.MD VinesTMP Interpretation Antibody Screen [id number] 15:39:40 Test Item Value Reference Range Interpretation Comments TMP Auto Neg At the present ABSC Interp time, patient (test code = plasma shows no FE RNANDO 7535) evidence of RBC Rama CARRILLO tated by: alloantibodies. DAVID CARRILLO,Dictat ed Date/Time: 12.24 10:39 AM CDT Transcribed Date/Time: 12.24 10:39 AM CDTElectronical ly Signed By: TUYET CARRILLO, on 01.16.2020 10:3 9 AM MD VinesFractionated [id number] 15:18:59 Test Item Value Reference Range Interpretation Comments Bili Total (test 0.4 mg/dL <=1.2 Indocyanine Green code = 5096) (ICG) may cause falsely elevate d bilirubin resul ts. Total and direc t bilirubin must not be measured from s amples containing indo cyanine green. False el evation of total biliru bin can be seen in law ents with IgG concentrations above 28 g/L. Bili Direct <0.2 <=0.3 mg/dL Indocyanine Gre en (test code = (ICG) may cause 5094) falsely elevate d bilirubin resul ts. Total and direc t bilirubin must not be measured from s amples containing indo cyanine green. Bili Indirect See Note 0-0.9 Unable to calc ulate (test code = Indirect Biliru bin 5095) result due to s ome parameters are outside reportable rang e MONIE (test code = Please schedule MONIE) EARLY AM MD VinesGlomerular Filtration [id number] 15:18:58 Test Item Value Reference Range Interpretation Comments eGFR-AA (test 105 >=60 mL/min/1.73 Normal eGF R: >= 60 code = 8062) sq. m mL/min/1.73 m2N ote: The eGFR is letty culated using the CKD-E PI equation. The e GFR declines with a ge. eGFR <60 mL/min /1.73 m2 is considere d as "decreased". Th is equation should only be used for pat ients 18 and older. According to th e National Kidney Foundation's Ki dney Disease Outcome Quality Initiat paola (KDOQI) classif ication and 2012 Kidney Disease Improvi ng Global Outcomes (KDIGO) Clinica l Practice Guidel ine, the stage of CK D should be categ orized based on estima eneida GFR. Stage Desc ription GFR mL/mi n/1.73 m21 Normal or h igh GFR >=902 Mildly decreased GFR 60-893a M ildly to moderately decreased GFR 45-593b Moderat mohan to severely decrea sed GFR 30-444 Lucia rely decreased GFR 15-295 Kidney f ailure <15 eGFR-CHRISTIE 91 >=60 mL/min/1.73 Normal eGFR : >= 60 (test code = sq. m mL/min/1.73 m2N ote: 8063) The eGFR is letty culated using the CKD-E PI equation. The e GFR declines with a ge. eGFR <60 mL/min /1.73 m2 is considere d as "decreased". Th is equation should only be used for pat ients 18 and older. According to th e National Kidney Foundation's Ki dney Disease Outcome Quality Initiat paola (KDOQI) classif ication and 2012 Kidney Disease Improvi ng Global Outcomes (KDIGO) Clinica l Practice Guidel ine, the stage of CK D should be categ orized based on estima eneida GFR. Stage Desc ription GFR mL/mi n/1.73 m21 Normal or h igh GFR >=902 Mildly decreased GFR 60-893a M ildly to moderately decreased GFR 45-593b Moderat mohan to severely decrea sed GFR 30-444 Lucia rely decreased GFR 15-295 Kidney f ailure <15 MONIE (test Please schedule code = MONIE) EARLY AM MD VinesTotal [id number] 15:18:57 Test Item Value Reference Range Interpretation Comments Total Protein (test 6.8 g/dL 6.4-8.3 code = 7649) MONIE (test code = MONIE) Please schedule EARLY AM MD VinesAlkaline [id number] 15:18:56 Test Item Value Reference Range Interpretation Comments Alk Phos (test code = 67 U/L 35-104 4768) MONIE (test code = MONIE) Please schedule EARLY AM MD [id number] 15:18:53 Test Item Value Reference Range Interpretation Comments ALT (test code = 10 U/L <=33 4705) MONIE (test code = MONIE) Please schedule EARLY AM MD VinesCalcium [id number] 15:18:52 Test Item Value Reference Range Interpretation Comments Calcium Lvl (test code 9.9 mg/dL 8.4-10.2 = 5258) MONIE (test code = MONIE) Please schedule EARLY AM MD Vines.Serum [id number] 15:18:51 Test Item Value Reference Range Interpretation Comments Creatinine (test code = 0.69 mg/dL 0.51-0.95 5399) MONIE (test code = MONIE) Please schedule EARLY AM MD VinesAlbumin [id number] 15:18:50 Test Item Value Reference Range Interpretation Comments Albumin Lvl (test code 4.6 3.5- 5.2 gm/dL = 4763) MONIE (test code = MONIE) Please schedule EARLY AM MD [id number] 15:18:49 Test Item Value Reference Range Interpretation Comments BUN (test code = 17 mg/dL 6-23 5055) MONIE (test code = MONIE) Please schedule EARLY AM MD VinesAspartate [id number] 15:18:48 Test Item Value Reference Range Interpretation Comments AST (test code = 15 U/L <=32 4731) MONIE (test code = MONIE) Please schedule EARLY AM MD VinesElectrolyte [id number] 15:18:47 Test Item Value Reference Range Interpretation Comments Sodium Lvl (test code = 142 136- 145 mEq/L 7355) Potassium Lvl (test 4.1 3.5- 5.1 mEq/L code = 6854) Chloride (test code = 105 98- 107 mEq/L 5279) CO2 (test code = 5227) 26 22- 29 mEq/L Anion Gap (test code = 11 4- 14 mEq/L 9325) MONIE (test code = MONIE) Please schedule EARLY AM MD VinesCA [id number] 15:18:46 Test Item Value Reference Range Interpretation Comments CA 19-9 (test code = 212.5 U/mL <=35.0 H Results greater 5171) than 9500 U/mL may not be reliable due to matrix effect with extended diluti on as it exceeds t he director of employer services s recommended limit. Caution should be exercised when interpreting garcia ch values and done in conjunction wit h clinical contex t. MONIE (test code = MONIE) Please schedule EARLY AM Lab Interpretation Abnormal (test code = 31817-5) MD VinesGlucose [id number] 15:18:45 Test Item Value Reference Range Interpretation Comments Glucose Level (test 124 mg/dL 70-99 H Referenc e range is code = 5699) valid for fasti ng specimens only. Guidelines established by the [place] Diabet es Association guidelines (Standards of Medical Care in Diabetes 2016. Diabetes Care 2016; 39: S13-2 2) are that a fast ing glucose of grea ter than or equal t o 126 mg/dL or a random glucose greater than or equal to 200 mg /dL with symptoms, that are confir med by repeat testi ng on a different day, meet the criteria for diabetes mellit us. MONIE (test code = MONIE) Please schedule EARLY AM Lab Interpretation Abnormal (test code = 92878-2) MD VinesPOC [id number] 15:10:32 Test Item Value Reference Range Interpretation Comments POC Crea (test 0.6 mg/dL 0.6-1.3 Medications, especially code = hydroxyurea or supplements, 98321-4) such as ascorba te, can interfere with test results causing a false ly and significantlyhi gher result than expected. If a problem is suspected wi th a patient's resul t, a sample should be sent to the laboratory for confirmatory testing. POC eGFR-AA 110 >=60 mL/min/1.73 Normal eGFR >= 60 (test code = m2 mL/min/1.73 [place] [address]-3) calculated usin g the CKD-EPI equation. The e GFR declines with age. eGFR <60 mL/min/1.73 m2 is considered as "decreased" This equation should only be used for patients 18 and older. According to e National Kidney Foundati on's Kidney Disease Outcome Quality Initiative (KDO QI) classification and 2012 Kidney Disease Improving Global Outcomes (KDIGO) Clinical Practi ce Guideline, the stage of CK D should be categorized bas ed on estimated GFR. Stage Description GFR mL/min/1.73 m21 Kidney angelina ge with normal or high GFR >=902 Kidney damage w ith mild decrease in GFR 60-893a Mild to moderat e decrease in GFR 45-593b Moderate to severe decrease in GFR 30-444 Severe d ecrease in GFR 15-295 K idney failure <15 (or tania lysis) POC eGFR-CHRISTIE 95 >=60 mL/min/1.73 Normal eGFR >= 60 (test code = m2 mL/min/1.73 m2 [place] [address]-1) calculated usin g the CKD-EPI equation. The e GFR declines with age. eGFR <60 mL/min/1.73 m2 is considered as "decreased" This equation should only be used for patients 18 and older. According to th e National Kidney Foundati on's Kidney Disease Outcome Quality Initiative (KDO QI) classification and 2012 Kidney Disease Improving Global Outcomes (KDIGO) Clinical Practi ce Guideline, the stage of CK D should be categorized bas ed on estimated GFR. Stage Description GFR mL/min/1.73 m21 Kidney angelina ge with normal or high GFR >=902 Kidney damage w ith mild decrease in GFR 60-893a Mild to moderat e decrease in GFR 45-593b Moderate to severe decrease in GFR 30-444 Severe d ecrease in GFR 15-295 K idney failure <15 (or tania lysis) POC Clean Dev Field1: . (test code = 6672) MD VinesAntibody [id number] 14:36:52 Test Item Value Reference Range Interpretation Comments ABSC. (test code = Negative ABSC 890-4) MONIE (test code = MONIE) Please schedule EARLY AM MD [id number] 14:36:21 Test Item Value Reference Range Interpretation Comments ABORh. (test code = AB POS 882-1) MONIE (test code = MONIE) Please schedule EARLY AM MD VinesClot Expiration [id number] 14:36:20 Test Item Value Reference Range Interpretation Comments T & S Expiration (test code = 01/19/2020 5318) MD VinesConfirm [id number] 14:30:05 Test Item Value Reference Range Interpretation Comments ABORh Confirm. (test code = 882-1) AB POS MD VinesPartial Thromboplastin [id number] 13:58:02 Test Item Value Reference Range Interpretation Comments PTT (test code = 29.8 24.2- 36.0 second(s) 6773) MONIE (test code = Please schedule EARLY MONIE) AM MD VinesProthrombin Time with [id number] 13:58:01 Test Item Value Reference Range Interpretation Comments PT (test code = 13.5 12.0- 14.3 second(s) 6746) INR (test code = 1.06 0.90-1.10 5973) MONIE (test code = Please schedule EARLY MONIE) AM MD VinesHemoglobin [id number] 13:02:08 Test Item Value Reference Range Interpretation Comments A1C (test code 5.6 % 4.3-5.6 HbA1c values >=6.5% = 4632) are diagnostic of diabetes mellitus.Diagno sis should be confi rmed by repeat testing.Therape utic Action suggeste d: >8.0% HbA1c; Go al oftherapy: <7.0 % HbA1c MONIE (test code Please schedule = MONIE) EARLY AM MD VinesComplete Blood Count w/o [id number] 12:32:58 Test Item Value Reference Range Interpretation Comments WBC (test code = 4.6 K/uL 4-11 6690-2) RBC (test code = 4.06 4.00- 5.50 M/uL 789-8) Hgb (test code = 12.0 12.0- 16.0 718-7) gm/dL Hct (test code = 35.1 % 37-47 L 4544-3) MPV (test code = 11.4 fL 4-10.4 H 787-2) MCH (test code = 29.6 pg 27-31 785-6) MCHC (test code = 34.2 31.0- 36.0 786-4) gm/dL RDW-SD (test code = 39.3 fL 35.1-46.3 16862-9) RDW-CV (test code = 12.5 % 12-15.5 788-0) Platelet count (test 189 K/uL 140-440 code = 777-3) INRBC (test code = 0.0 % <=0.0 The INRBC 5974) (instrument NRB C) value reflects the enumerationof nucleated red b lood cells contained in a 200uL sampleo f whole blood analyzed by the instrument. Thi s value maydiffer from the NRBC v alue reported in a manual differential,wh ich is based on a 1 00 cell differenti al. MONIE (test code = MONIE) Please schedule EARLY AM Lab Interpretation Abnormal (test code = 88042-6) MD VinesMD COVID-19 (YASMINE-CoV-2) PCR [id number] 11:57:47 Test Item Value Reference Interpretation Comments Range COVID19 SARS New Patient Indication (test code = 59493) COVID19 SARS Result Not Detected Not Detected (test code = 25317-2) COVID19 SARS SARS-CoV-2 NOT Detected. Interpretation (test Reference Range: Not code = 81904) Detected Methodology: The [employer] RealTime SARS-CoV-2 assay is a qualitative real-time reverse data solutions architect polymerase chain reaction (museum technician-PCR) test to detect RNA from SARS-CoV-2 in nasal, nasopharyngeal and oropharyngeal swabs from patients with signs and symptoms of infection who are suspected of COVID-19 by their health care provider. The [employer] RealTime SARS-CoV-2 performed on the K[employer]git[employer] System is a dual target assay with primers and probes for the RdRp and N genes. Results must be interpreted within the context of all relevant clinical and laboratory findings, and epidemiological risk factors. Positive results are indicative of the presence of SARS-CoV-2 RNA; clinical correlation with patient history and other diagnostic information is necessary to determine patient infection status. Positive results do not rule out bacterial infection or co-infection with other viruses. Negative results do not preclude SARS-CoV-2 infection and should not be used as the sole basis for patient management decisions. The mig33 RealTime SARS-CoV-2 assay is for in vitro diagnostic use under FDA Emergency Use Authorization only. Testing is limited to laboratories certified under the Clinical Laboratory Improvement Amendments of 1988 (CLIA), 42U.S.C. 263a, to perform high complexity tests. The Test was performed by the CLIA-certified, high-complexity Molecular Diagnostics Laboratory ([facility]) at [facility] under the Food and Drug Administration (FDA) s Emergency Use Authorization. Factsheet for patients: https://www.Povonderson.org/ AbbottFactSheetPatientsFact sheet for healthcare providers: https://www.[employer]ov[place]erson.org/ AbbottFactSheetHCP Test performed by:[facility] [id number] [place] [address] [facility] Lumbar Spine W Wo [id number] 19:44:35Hm Interface, Radiology Results 01/13/2020 7:47 PM CDTEXAMINATION: MRI LUMBAR SPINE W WOCONTRASTCLINICAL HISTORY: M54.6 Pain in thoracic spine, back painCOMPARISON: NoneTECHNIQUE: Multiplanar multisequence nonenhanced and contrast enhanced MRI examination was performed of the lumbar spine .FINDINGS:There are 5 non-rib bearing lumbar type vertebrae. No fracture. No subluxation. No suspicious osseous lesions. No marrow edema. Conus medullaris terminates at the level of L2. No abnormal enhancement.Evaluation of the visualized soft tissues demonstrates no mass, adenopathy or aneurysm. Axial images through the disc spaces demonstrate the following:L1-L2: No significant posterior disc disease, spinal canal, subarticular zone, or neural foraminal stenosis.L2-L3: No significant posterior disc disease, spinal canal, subarticular zone, or neural foraminal stenosis.L3-L4: Mild bilateral subar ticular zone stenosis secondary to small disc bulge and facet arthropathy. No significant spinal canal or neural foraminal stenosis.L4-L5: Small disc bulge with superimposed small central disc protrusion and mild facet arthropathy with ligament flavum infolding contributes to moderate bilateral subarticular zone stenosis with contact of the traversing L5 nerve roots, with potential compression of thetraversing right L5 nerve root. There is mild right greater than left neural foraminal stenosis secondary to small disc bulge and endplate osteophytes. There is mild spinal canal stenosis.L5-S1: No significant posterior disc disease, spinal canal, subarticular zone, or neural foraminal stenosis.IMPRESSION: 1. Degenerative changes of the lumbar spine, notably at L4- 5 as detailed above.[facility]-MPHYBXNHouscentrastate healthcare system MethodistP[facility] [id number] 18:00:23 Test Item Value Reference Range Interpretation Comments POC creatinine (test 0.7 mg/dl 0.5-0.9 Operato r Name: Mingo code = 74957-9) JenniferDevi ce ID: [id number] [place] [facility]Estimated [id number] 18:00:23 Test Item Value Reference Range Interpretation Comments Estimated GFR (test 90 mL/min/1.73 m2 [facility] Units code = 85879-2) Interpretati onG1 >=90 Normal or highG2 60-89 Mildly flyslmzygH1w 45-59 Mildly to mode rately kbtateyvxR6n 30-44 Moderately to severely decreasedG4 15-29 Severely decre asedG5 <15 Kidn ey failureThe eGFR was calculated usin g the Chronic Kidney Disease Epidemiology Co llaboration (CKD-EPI) equat ion. Interpretation is based on recommendations of the National Kidney Foundation-Kidn ey Disease Outcomes Qualit y Initiative (NKF-KDOQI) pub lished in 2014. Maikol Romero US Abdominal [id number] 04:42:54For comparison only. No interpretation requested.MD Barajas Nuclear Diagnostic Exam 2020-01-11 04:42:32For comparison only. No interpretation requested.MD Vines OSI CT [id number] 04:42:17For comparison only. No interpretation requested.MD Barajas MRI [id number] 04:42:00For comparison only. No interpretation requested.MD VinesMRVicky Abd/Pelvic External [id number] 10:11:02This exam was not acquired at a [facility] facility and has not been interpreted by a [employer] Provider. The exam was imported into our imaging system.[facility] Abd/Pelvic External [id number] 10:09:52This exam was not acquired at a [facility] facility and has not been interpreted by a [employer] Provider. The exam was imported into our imaging system.[facility]
[2020-02-16] MEDS ORDERED: Ringers Lactate 1,000 ML IV ONE (07:55)
[2020-02-16] MEDS ORDERED: CEFAZOLIN/SWI 1gm 1 GM/10 ML SYR ONE (07:56)
[2020-02-16] MEDS ORDERED: SIMETHICONE 40 MG/ 0.6 ML ONE (08:02)
[2020-02-16] MEDS ORDERED: ONDANSETRON 4 MG/2 ML VIAL ONE ×2 (08:02→08:21)
[2020-02-16] MEDS ORDERED: LIDOCAINE 1% MPF 30 ML VIAL ONE (08:10)
[2020-02-16] MEDS ORDERED: NS 0.9% VIAL 30 ML ONE (08:10)
[2020-02-16] MEDS ORDERED: HEPARIN 5000 UNIT/ML 1 ML VIAL ONE (08:10)
[2020-02-16] MEDS ORDERED: FENTANYL CITR 100 MCG/2 ML ONE (08:18)
[2020-02-16] MEDS ORDERED: MIDAZOLAM HCL 2 MG/2 ML INJ ONE (08:18)
[2020-02-16] MEDS ORDERED: propofoL 200 MG/20 ML VIAL IV ONE (08:18)
[2020-02-16] MEDS ORDERED: dexAMETHasone 10 MG/ML VIAL ONE (08:19)
[2020-02-16] MEDS ORDERED: KETOROLAC 30 MG/ML INJ ONE (08:19)
[2020-02-16] MEDS ORDERED: LIDOCAINE 2% MPF 5 ML VIAL ONE (08:19)
--- NOTE | 2020-02-16 10:04 | RAD REPORT ---
EXAM DESCRIPTION: RAD - Chest Single View - 02/16/2020 9:53 am CLINICAL HISTORY: s/p port a cath Chest pain. COMPARISON: No comparisons FINDINGS: Portable technique limits examination quality. The lungs are grossly clear. Right-sided port catheter placed with tip is in the SVC. No postprocedur e pneumothorax. The heart is normal in size. No displaced fractures. IMPRESSION: No postprocedure pneumothorax.
--- NOTE | 2020-02-16 10:07 | OP ---
Date of Procedure: 02/16/2020 Surgeon: Cheo Zarate MD [employer] Clerk: None. Preoperative Diagnosis: Pancreatic cancer. Postoperative Diagnosis: Pancreatic cancer. Procedure: Placement of right IJ Port-A-Cath and interpretation of intraoperative fluoroscopy. Estimated Blood Loss: Minimal. Specimen: None. Findings: Normal anatomy. Anesthesia: MAC. Complications: None. Disposition: The patient tolerated the procedure in stable condition, taken to Recovery in good gene ral condition. Procedure In Detail: The patient was brought to the OR and placed in supine position. MAC anesthesi a begun. The patient was prepped and draped in usual sterile fashion. Marcaine 0.5% was infiltrated locally and then an 18-gauge needle was used to access the right IJ vein. Guidewire was placed. Po sition was confirmed with fluoroscopy. 3 cm counterincision was made on the right anterior chest. P ocket was created. Tunneling device used to tunnel the catheter between the 2 wounds. Seldinger alicia hnique was used. Tip of the catheter was placed in the SVC under fluoroscopy. Cut to appropriate si ze and attached to the Port-A-Cath device. Port-A-Cath device was attached to the subcutaneous tissu e with 3-0 Vicryl and then 3-0 chromic used to approximate the subcutaneous tissues and close the ski n. Port was flushed with heparin and packed with heparin with good blood flow. Sterile dressing was applied. Patient was awakened and taken to Recovery in good general condition and chest x-ray has b een ordered. If okay the patient will be discharged to home. Disposition: Home. Condition: Stable. Discharge Instructions: Resume home medications and diet. Activity as tolerated. No heavy lifting. Remove outer dressing in 2 days. Shower. Keep wound clean and dry. Keep Steri-Strips on at all t imes. [facility]. Call for appointment. Follow up in my office in 2 weeks. Ca ll for appointment. The patient has Denair 7.5 for pain at home. /MODL Voice ID: [id number] Report ID: [id number]
[2020-02-16] MEDS ORDERED: HYDROCODONE/APAP 7.5/325 MG TAB ONE (10:33)
[2020-02-16 11:08] VITALS: BP 133/72; TEMP 97.3; O2SAT 100
--- NOTE | 2020-02-16 15:21 | RAD REPORT ---
EXAM DESCRIPTION: RAD - Fluoroscopy <1 Hour - 02/16/2020 3:15 pm CLINICAL HISTORY: Device placement central venous catheter placement FINDINGS: A central venous catheter was placed into the superior vena cava. 5 fluoroscopic spot imag es are submitted. Fluoroscopy time 0.4 minutes The examination was performed by Dr. Zarate
== END 2020-02-16 11:00 | disposition home or self-care (01) ==
LOC: OR 07:23
PROVIDERS: ATTEND Surgery
PROC: 02HV33Z Insertion of Infusion Device into Superior Vena Cava, Percutaneous Approach (ICD-10-PCS; 2020-02-16)
PROC: 0JH63XZ Insertion of Tunneled Vascular Access Device into Chest Subcutaneous Tissue and Fascia, Percutaneous Approach (ICD-10-PCS; principal; 2020-02-16 08:30)
DX: C25.9 Malignant neoplasm of pancreas, unspecified (principal); Z20.828 Contact with and (suspected) exposure to other viral communicable diseases
CPT/HCPCS: 71045; 76000; 36561; U0002; J2704; J1644 ×2; J2250; J3010; J1100; J0690; J7120; J2405; C1788

== ENCOUNTER 2020-04-02 15:58 | Observation (INO) | payer BC ==
--- OUTSIDE RECORDS SUMMARY | 2020-04-02 16:00 | XMS REPORT | Clinical Summary ---
:1955 Author Organization [facility] Address [address] [place] [address] Care Team Providers Name Role Phone Provider, [...] C) 500 MG mouth daily. tablet thyroid,pork (ONCOLOGY SOCIAL WORK Take 75 mg by 0 Active THYROID ORAL) mouth daily. traMADoL (ULTRAM) 50 mg Take 50 mg by 0 Active tabletIndications: mouth every 6 acute pain (six) hours as needed for moderate pain .acute pain. 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 Encounters Date Type Specialty Care Team Description 03/24/2020 Documentation Transplant Aidee Yanez, ONCOLOGY SOCIAL WORK 03/09/2020 Travel 01/13/2020 Hospital Encounter Radiology Aidee Yanez Bila teral thoracic back A., ONCOLOGY SOCIAL WORK pain, unspecified Edyta, Rafik chronicity MD Valdemar 01/12/2020 Travel 01/08/2020 Orders Only Transplant Aidee Yanez Bilateral thoracic back A., ONCOLOGY SOCIAL WORK pain, unspecifi ed chronicity (Neris kelsey Dx) 01/07/2020 Office Visit Transplant Mirza Lan Hyperlipidem Valdemar barreto MD unspecified Michele Salguero MD hyperlip idemia type (Primary Dx) 01/07/2020 Travel 01/02/2020 Hospital Encounter Radiology Mirza Lan MD 01/02/2020 Hospital Encounter Radiology Mirza Lan MD 12/30/2019 Telephone Transplant Mima Redding RN Referral - Hepatobiliary Txp 12/30/2019 Telephone Transplant Luna Garner Referral - Hepatobiliary MA Txp after 04/02/2019 Surgical History Surgery Date Site/Laterality Comments TUBAL LIGATION HEMORROIDECTOMY COLONOSCOPY 02/23/2019 - precancerous ozzy yps 03/24/2019 removed ESOPHAGOGASTRODUODENOSCOPY Medical History Medical History Date Comments Hormone disorder Arrhythmia heart murmur Diverticulitis of colon diverticulosis Fatty liver 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 Last Filed Vital Signs Vital Sign Reading [...] (#1) 2003 65+ PNEUMOCOCCAL VACCINE (1 of 1 - PPSV23) 2018 INFLUENZA VACCINE 01/24/2020 Procedures Procedure Name Priority Date/Time Associated Diagnosis [...] procedure are in the results section. after 04/02/2019 Results MRI Lumbar Spine W Wo Contrast [...] HMRM-MPHYBXN Procedure Note Hm Interface, Radiology Results - 01/13/2020 7:47 PM CDT EXAMINATION: MRI [...] ine, notably at L4-5 as detailed above. HMRM-MPHYBXN Performing Organization Address City/[facility]/ZIP [facility] Phon e Number [facility] [address] [place] [phone] Estimated GFR (01/13/2020 5:57 PM CDT) Estimated GFR 90 mL/min/1.73 [facility] Comment: m2 HOSPITAL Catergory Units Interpretation G1 [...] in 2014. Specimen Blood Performing Organization Address [facility] Phon e Number [facility] DEPARTMENT OF PATHOLOGY AND [address] [place] [address] [phone] [address] POC creatinine (01/13/2020 5:57 PM CDT) POC creatinine 0.7 0.5 - 0.9 [facility] Comment: mg/dl HOSPITAL Bead Picker Name: Mingo Seymour Device ID: [id number] Specimen Blood Performing Organization Address [facility] Phon e Number [facility] DEPARTMENT OF PATHOLOGY AND [address] [place] [address] [phone] [address] MRI Abd/Pelvic External Study (12/25/2019 8:58 AM CDT) Specimen Narrative Performed At This exam was not acquired at a [facility] t facility and has not been [facility] interpreted by a [facility] Provider. T he exam was imported into our imaging system. Performing Organization Address City/[facility]/ZIP Code Phon e Number [facility] [address] [place] [phone] [address] Abd/Pelvic External Study (12/18/2019 9:05 AM CDT) Specimen Narrative Performed At This exam was not acquired at a [facility] facility and has not been [facility] interpreted by a [facility] Provider. T he exam was imported into our imaging system. Performing Organization Address City/[facility]/ZIP Code Phon e Number [facility] [address] [place] [address] after 04/02/2019 Advance Directives For more information, please contact: [phone] Type Date Recorded Patient Profiling Machine Set Up Operator Explanati on Advance Directives, Living Will and Medical Power of Olap Developer
--- OUTSIDE RECORDS SUMMARY | 2020-04-02 16:02 | XMS REPORT | Continuity of Care Document ---
:1955 Author Organization [facility] t Address [facility] [place] [address] Care Team Providers Name Role Phone CHAY Primary Care Physician Unavailable IVAN Attending Clinician Unavailable SYSTEM, NOT IN Attending Clinician Unavailable SKYE HENAO Attending Clinician Unavailable HELD Attending Clinician Unavailable Светлана PA Attending Clinician REID Attending Clinician Unavailable Reid MASSEY Attending Clinician Lambert Sepulveda MD Attending Clinician Valarie ADEN Attending Clinician Devon SAHU, S Attending Clinician Renata DRY PLASTERER, A. Attending Clinician Robina RN, R Attending Clinician Unavailable Flaco THOMAS Attending Clinician Skye Henao MD Attending Clinician Valdemar Lan MD Attending Clinician Noemy MASSEY Attending Clinician Carolin Espitia RN Attending Clinician IRENE HERNANDEZ Attending Clinician Unavailable Irene Hernandez MD Attending Clinician Ivan MASSEY Attending Clinician Chay MASSEY Attending Clinician CHAY Attending Clinician Unavailable Charlie DENIS Attending Clinician Unavailable Elvin DENIS Attending Clinician Unavailable FLACO Attending Clinician Unavailable HERMELINDA Attending Clinician Unavailable Hermelinda MASSEY Attending Clinician Patrick BULLOCK Attending Clinician Kenneth KAHN Attending Clinician Unavailable Berenice DENIS, Kenneth Attending Clinician Unavailable Beverly THOMAS, Efren Attending Clinician Vahid DENIS Attending Clinician Unavailable Pascual ACUNA Attending Clinician Unavailable Cheikh Cueto MD Attending Clinician IRENE HERNANDEZ Admitting Clinician Unavailable Payers Payer Name Policy Type Policy Effective Date Expiration Date Sour ce Number [place] POS [id number] 2016 00:00:00 BCBSBCBS CHOICE [id number] 2015 [place] PPO/FEDERAL 00:00:00 [employer] EMPL [id number] 2015[facility] tPP Problems Condition Condition Condition Status Onset Resolution Last Treating Co mments Source Name Details Category Date Date Treatment Clinician Date Pancreatic Pancreatic Disease Active 2019-0 M D cancer cancer 02-02 Anderso 00:00: n 00 Cardiac Cardiac Disease Active murmur murmur 01-14 Anderso 00:00: n 00 Hypothyroi Hypothyroi Disease Active 2020-0 M D dism dism 01-14 Anderso 00:00: n 00 Fatty Fatty Disease Active liver liver 01-14 Anderso 00:00: n 00 Mass of Mass of Disease Active Overview: pancreas pancreas 01-14 Added Kamran o 00:00: automatic n 00 ally from request for surgery [id number] Hyperlipid Hyperlipid Disease Active Overview : MD juan carlos rangel 7-07 ICD10 Anderso 00:00: Diagnosis n 00 Term Panel Flow Machine Operator UtilityIC D10 Diagnosis Term Panel Flow Machine Operator Utility Alopecia Alopecia Disease Active Overview: 3-13 ICD10 Anderso 00:00: Diagnosis n 00 Term Panel Flow Machine Operator UtilityIC D10 Diagnosis Term Panel Flow Machine Operator Utility Allergies, Adverse Reactions, Alerts Allergy Allergy Status Severity Reaction(s) Onset Inactive Treating Comm ents Source Name Type Date Date Clinician Savanna Ragland Active Rash [place] ty to 3-13 Methodi adverse 00:00: st reaction 00 s to drug Family History Family Member Diagnosis Comments Start Date Stop Date Source Natural father Prostate cancer MD Liane caba Natural father Skin cancer MD Andrew on Maternal cousin Colon cancer MD Brandon kaur Maternal cousin Cancer MD [place] Maternal uncle Cancer MD Mari hanna Other Cancer MD Vines Paternal cousin Colon cancer MD Brandon kaur Social History Social Habit Start Date Stop Date Quantity Comments Source History SDOH [place] [facility] odist Alcohol Std Drinks History SDOH [place] [facility] Alcohol Binge Exposure to Unable to assess [place] [facility] SARS-CoV-2 (event) Sex Assigned At MD [facility] Tobacco use and 2020-03-31 2020-03-31 Never used MD [place] exposure 00:00:00 00:00:00 Alcohol intake 2020-03-31 2020-03-31 Lifetime MD Mari hanna 00:00:00 00:00:00 non-drinker (finding) History SDOH 2018-12-23 2018-12-23 1 [place] [facility]ist Alcohol Frequency 00:00:00 00:00:00 Smoking Status Start Date Stop Date Source Never smoker MD [place] Medications Ordered Filled Start Stop Current Ordering Indication Dosage Frequency Signature Comments Components Source Medication Medication Date Date Medication? Clinician (SIG) Name Name ascorbic 2019-06 Yes 500mg Take 500 MD acid 0-06 mg by Anderso (VITAMIN C) 14:18: mouth. n 500 mg 56 tablet traMADol 2019-06 Yes 50mg Take 50 mg MD (ULTRAM) 50 0-06 by mouth. And erso mg tablet 14:18: n 56 thyroid 2019- Yes 75mg Take 75 mg MD (ARMOUR 0-06 by mouth. Anderso THYROID) 15 14:18: n mg tablet 56 ALPRAZolam 2019-06 Yes .5mg Take 0.5 MD (XANAX) 0.5 0-06 mg by Anderso mg tablet 14:18: mouth n 56 nightly as needed. melatonin 3 2019-06 Yes 10mg Take 10 mg MD mg tablet 0-06 by mouth Kamran o 14:18: at n 56 bedtime. ondansetron Yes DISSOLVE 1 MD (ZOFRAN-ODT 9-22 TABLET IN And erso ) 4 mg 00:00: MOUTH n disintegrat 00 EVERY 4 TO ing tablet 6 HOURS NEEDED hyoscyamine 2020-0 Yes DISSOLVE 1 MD (LEVSIN/SL) 9-22 TABLET Kamran o 0.125 mg SL 00:00: UNDER THE n tablet 00 TONGUE EVERY 4 HOURS NEEDED FOR ABDOMINAL PAIN pancrelipas 2020-0 Yes Exocrine Take 2 MD e (Creon) 8-28 pancreatic capsules Anderso 12,000 00:00: insufficien with meals n units-38,00 00 cy and 1 with 0 snacks by units-60,00 mouth for 0 units pancreatic capsule insufficie ncy. dexamethaso 2020-0 Yes TAKE 2 MD ne 8-28 TABLETS BY Anderso (DECADRON) 00:00: MOUTH n 4 mg tablet 00 TWICE DAILY FOR 2 DAYS THEN 1 TABLET TWICE A DAY FOR 1 DAY. START THE DAY AFTER CHEMO THREATMENT magnesium 2020-0 2020- No Take by citrate 8-11 08-11 mouth Anderso solution 19:13: 00:00 daily as n 59 :00 needed. Drink the content of one bottle (296 mL) orally as directed prior to surgery for bowel preparatio n. HYDROcodone 2020-0 Yes Pancreatic 1{tbl} Take 1 MD -acetaminop 8-11 cancer tablet by A maral sanderson ([place]) 00:00: mouth n 5 mg-325 mg 00 [...] 46 daily. (241.3 mg magnesium) tablet ascorbic 2019-0 Yes 500mg QD Take 500 [place] acid, 7-07 mg by Methodi vitamin C, 14:17: mouth st (VITAMIN C) 46 daily. 500 MG tablet thyroid,por 2019-0 Yes 75mg QD Take 75 mg Lassiter k (DRY PLASTERER 7-07 by mouth Methodi THYROID 14:17: daily. st ORAL) 46 traMADoL 2019-0 Yes acute pain 50mg Q6H Take 50 mg Lassiter (ULTRAM) 50 7-07 by mouth Meth yuly mg tablet 14:17: every 6 st 46 (six) hours as needed for moderate pain .acute pain. clonazePAM Yes TAKE 1 MD (KlonoPIN) 6-29 TABLET BY Brandon simons 1 mg tablet 00:00: MOUTH ONCE n 00 DAILY rizatriptan Yes DISSOLVE 1 MD (MAXALT-QUILL CLEANING MACHINE OPERATOR 4-06 TABLET IN And erso ) 10 mg 00:00: MOUTH ONCE n disintegrat 00 DAILY ing tablet NEEDED FOR MIGRAINE HEADACHE magnesium Yes 1{capsu Take 1 MD oxide 400 9-07 le} capsule by Brandon cronino mg 00:00: mouth n magnesium 00 daily. cap docusate 2020- No 1{tbl} Take 1 MD sodium [...] kg Body weight 2020-02-03 19:21:00 58.106 kg MD Arce annika BMI 2020-02-03 19:21:00 22.90 kg/m2 MD Arce annika Systolic blood 2020-02-03 19:08:59 121 mm[Hg] pressure Diastolic blood 2020-02-03 19:08:59 76 mm[Hg] MD Rob derson pressure Heart rate 2020-02-03 19:08:59 72 /min MD Arce son Body temperature 2020-02-03 19:08:59 36.61 Jovanna MD Danielle cao Respiratory rate 2020-02-03 19:08:59 18 /min MD Danielle cao Oxygen saturation in 2020-02-03 19:08:59 100 /min MD Vines Arterial blood by Pulse oximetry Body height 2020-01-16 18:54:00 159.3 cm MD Arce son Body height 2020-01-13 17:42:00 162.6 cm [place] [facility] Body weight 2020-01-13 17:42:00 59.421 kg [place] [facility] BMI 2020-01-13 17:42:00 22.49 kg/m2 [place] [facility] Systolic blood 2020-01-07 14:52:00 159 mm[Hg] [place] [facility] pressure Diastolic blood 2020-01-07 14:52:00 66 mm[Hg] [place] [facility] pressure Heart rate 2020-01-07 14:52:00 73 /min [place] [facility] Body temperature 2020-01-07 14:52:00 36 Jovanna [place] [facility] Respiratory rate 2020-01-07 14:52:00 17 /min [place] [facility] Oxygen saturation in 2020-01-07 14:52:00 99 /min [place] [facility] Arterial blood by Pulse oximetry Procedures Procedure [...] BLOOD COUNT W/ 2020-01-16 12:27:00 Tiffanie Oh MD INDICES COMPREHENSIVE METABOLIC 2020-01-16 12:27:00 Tiffanie Oh MD nderson PANEL CANCER ANTIGEN 19-9 2020-01-16 12:27:00 Tiffanie Oh MD Claude son PROTHROMBIN TIME 2020-01-16 12:27:00 Tiffanie Oh MD PARTIAL THROMBOPLASTIN TIME 2020-01-16 12:27:00 Tiffanie Oh MD TYPE AND SCREEN 2020-01-16 12:27:00 Tiffanie Oh MD HEMOGLOBIN A1C 2020-01-16 12:27:00 Tiffanie Oh MD GLUCOSE LEVEL 2020-01-16 12:27:00 Tiffanie Oh MD ELECTROLYTE PANEL 2020-01-16 12:27:00 Tiffanie Oh MDo n SERUM CREATININE 2020-01-16 12:27:00 Tiffanie Oh MD .GLOMERULAR FILTRATION RATE 2020-01-16 12:27:00 Tiffanie Oh MD CALCIUM LEVEL TOTAL 2020-01-16 12:27:00 Tiffanie Oh MD Claude son ALBUMIN LEVEL 2020-01-16 12:27:00 Tiffanie Oh MD ALKALINE PHOSPHATASE 2020-01-16 12:27:00 Tiffanie Oh MD Brandon rsabhishek ALANINE AMINOTRANSFERASE 2020-01-16 12:27:00 Tiffanie Oh MD ASPARTATE AMINOTRANSFERASE 2020-01-16 12:27:00 Tiffanie Oh TOTAL PROTEIN 2020-01-16 12:27:00 Tiffanie Oh MD FRACTIONATED BILIRUBIN 2020-01-16 12:27:00 Tiffanie Oh MD derson ABORH 2020-01-16 12:27:00 Tiffanie Oh MD ANTIBODY SCREEN 2020-01-16 12:27:00 Tiffanie Oh MD BLOOD UREA NITROGEN 2020-01-16 12:27:00 Tiffanie Oh MD Claude son CLOT EXPIRATION DATE 2020-01-16 12:27:00 Tiffanie Oh MD Brandon rsabhishek TMP INTERPRETATION ANTIBODY 2020-01-16 12:27:00 Tiffanie Oh [...] Planned Date Details Comments Source Future Scheduled 2020-01-24 INFLUENZA VACCINE Kobe cyndi [facility] Test 00:00:00 [code = INFLUENZA VACCINE] Future Scheduled 2018 65+ PNEUMOCOCCAL [place] [facility] Test 00:00:00 VACCINE (1 of 1 - PPSV23) [code = 65+ PNEUMOCOCCAL VACCINE (1 of 1 - PPSV23)] Future Scheduled 2003 BREAST CANCER [facility] thodist Test 00:00:00 SCREENING [code = BREAST CANCER SCREENING] Future Scheduled 2003 COLONOSCOPY SCREENING Ho michelle [facility] Test 00:00:00 [code = COLONOSCOPY SCREENING] Future Scheduled 2003 SHINGLES VACCINES (#1) H justine [facility] Test 00:00:00 [code = SHINGLES VACCINES (#1)] Encounters Start End Encounter Admission Attending Care Care Encounter Source Date/Time Date/Time Type Type Clinicians Facility Department ID 2020-02-03 Outpatient YAHAIRA SYED [id number] 15:54:58 Mari hanna 2020-01-27 Outpatient YAHAIRA DESHPANDE MDA [id number] 12:56:49 WILMER hanna 2020-01-27 Outpatient YAHAIRA DESHPANDE MDA [id number] 12:56:49 WILMER hanna 2020-01-13 Outpatient SYSTEM, MDA MDA [id number] 10:49:58 PROVIDER Kamran o cyndi 2020-01-05 Outpatient MDA MDA [id number] 09:22:54 Andersdelaney n 2020-04-15 2020-04-15 Outpatient EL GLO, MDA MDA [id number] MD 00:00:00 00:00:00 CINDY Andrew o n 2020-04-14 2020-04-14 Outpatient ANANDA SOTOMAYORNE MDA MDA [id number] 00:00:00 00:00:00 Kamran o n 2020-04-14 2020-04-14 Outpatient СВЕТЛАНА BENJAMIN MDA MDA [id number] MD 00:00:00 00:00:00 Kamranjolanta hanna 2020-03-31 2020-03-31 Outpatient EL REID, MDA MDA [id number] 12:36:49 13:19:16 FATOU Brandon rso n 2020-02-26 2020-02-26 Outpatient EL REID, MDA MDA [id number] MD 00:00:00 00:00:00 FATOU Brandon rso n 2020-02-24 2020-02-24 Outpatient EL REID, MDA MDA [id number] MD 00:00:00 00:00:00 FATOU Brandon rso n 2020-02-03 2020-02-03 [facility] [id number] 13:44:46 15:58:16 CINDY Kamran o n 2020-01-27 2020-01-27 Outpatient [facility] MDA Mahesh/Hep/Nu [id number] MD 12:00:00 15:59:00 lul EHRNANDEZ 2020-01-26 2020-01-26 Outpatient EL TZENG, MDA MDA [id number] MD 07:41:56 07:41:56 KEENA-GARTH Marqueze rso n 2020-01-25 2020-01-25 Outpatient EL TZENG, MDA MDA [id number] MD 10:28:10 10:49:16 KEENA-GARTH Brandon rso n 2020-01-19 2020-01-19 Outpatient TIFFANIE OH MDA MDA [id number] 12:49:49 12:49:55 Kamranjolanta hanna 2020-01-19 2020-01-19 Outpatient EL HERMELINDA, MDA MDA [id number] MD 10:09:57 10:23:18 HOLLIE Kamran o n 2020-01-16 2020-01-19 Outpatient TIFFANIE CARNEY MDA MDA [id number] MD 14:53:03 07:58:51 Kamran o n 2020-01-16 2020-01-16 Outpatient TIFFANIE CARNEY MDA MDA [id number] 08:06:09 23:59:00 Kamran o n 2020-01-16 2020-01-16 Outpatient BRITTANY GAONA, MDA MDA [id number] MD 13:31:55 15:06:05 LUZ Taylor rso n 2020-01-16 2020-01-16 Outpatient TIFFANIE CARNEY MDA MDA [id number] 07:06:39 08:05:00 Kamran o n 2020-01-16 2020-01-16 Outpatient MDA MDA [id number] 07:05:32 07:06:23 Kamran o n 2020-01-16 2020-01-16 Outpatient TIFFANIE CARNEY MDA MDA [id number] 00:00:00 00:00:00 Kamran o n 2020-01-14 2020-01-14 Outpatient BRITTANY KAHN, MDA MDA [id number] 18:30:49 18:52:26 TU Kamran o n 2020-01-13 2020-01-13 Outpatient [facility] [id number] [place] 00:00:00 00:00:00 MIRZA soto 2020-01-10 2020-01-10 Outpatient MDA MDA [id number] MD 23:26:22 23:26:22 Kamran o n 2020-01-10 2020-01-10 Outpatient MDA MDA [id number] MD 23:26:21 23:26:21 Kamran o n 2020-01-10 2020-01-10 Outpatient MDA MDA [id number] MD 23:26:20 23:26:20 Kamran o n 2020-01-10 2020-01-10 Outpatient MDA MDA [id number] MD 23:26:17 23:26:17 Kamran o n 2020-01-10 2020-01-10 Outpatient MDA MDA [id number] MD 23:26:17 23:26:17 Kamran o n 2020-01-07 2020-01-07 Outpatient MILLIE, [facility] [id number] [place] 00:00:00 00:00:00 MIRZA 678 Method i 2020-01-02 2020-01-02 Outpatient MILLIE, [facility] [id number] [place] 00:00:00 00:00:00 TROYTERESA 000 Method i 2020-01-02 2020-01-02 Outpatient MILLIE, [facility] [id number] [place] 00:00:00 00:00:00 MIRZA 028 Method i 2019-08-26 2019-08-26 [facility] Kayode Cueto [facility] [id number] 12:01:00 23:59:00 Encounter Cheikh Pratt [id number] Kellie [id number] [place] [id number] Results Test Description Test Time Test Comments Results Result Comments Source Cytology Image-Guided FNA Interpretation 2020-01-28 22:09:00 Test Item Value Reference Range Interpretation Comme nts Gross i1ybnCOvRMSkv4mgCERbMjCtCEXIu5jvy513qDGuYOinPeDtXlY2iSZsHSDucJVxf9Y0RIpgkHWrCgMY xygnsUz8n0kxR1pxiq9iIL3rQuDnBTRqEZCtTHIpfcZxSYMcxIOuEL8mioKKr94axiw9i4eeLSclhR8z LVTuHBBctSUkm4Y6GJpxmBPdKEKCl5HagNDdZG1isrn Description 2k2adBNkjg1xox0EyCnQsHYKjRKGzSQBxtmTfIHJthOOdMP8cpuRyyrj7h5xqWZRkNl2oSIXmbupjZ3p dfcTwqJYdKrRugBAdQ487eqkdsjc1k2beDRAzPm3ijVaqC4suqgPjkBLqLpFrcDKaYIIebFUQoXAzzkQ fpEC8eEvfCxQvOCRcm53lsgmlK2gkskWxmXHqGrNiaH (test code = ZhO8rsRy2iN751EYEmSFppg4tbs8MjOjGmJYKnXRUoNBDpycUdTMLrY21aFOURB477ZHYdEGIkOVXvf6 tyl2rkL7ikonYxzFBxVhKkjIBmCJCbGVp2cU7Ob8sub8qjhiIztRZ8BJAsZUGoP9SdQF2mKKPaeYHiB9 xlJXBzZBrwuzYcjrG3NAFnyATpMAwrczYdXlBxR3QxI [id number]) J0gINomkHBoAbA3QHJcSVI9XFagYMYmGTzzMzs6IAP6J9oqUQH2J9qlcjXzzcItLPOeiDF6DyhpieYmP yusZ0KpKW71NQognSNpKci7RAWwDTf2NNjsWRIvYOImLoh1EJq4T9ixPCVyYXBxG8NiOB2cIYIvExw4Q LQgPMzckrIbXMH5EUcgXSZcNGV1MWSasXEuYxh0JUOz VZA6X0romrIkrdF6P9xvnGQeJGEgF3lhRIJjBHvbM7FlGJ9jKKanOth4CWQ3FYofmyElUCe5EHmjWPMz NBg1TSKhjGRmHwE1TKCdPYO5YVgrkfDihcJ8JLdddDIdPBxkQ9yxBAUmFBdeB7UxFR3aGFifXdq6ETGb KgiayeZaJzJyEBwoSPZtNyPsJDEasJFnRtF3PTReQPJ zSEdyaxPzhjJhKZldpHGwEeL8F1xzDLSuSLZgH6XhOE8fEIIwCqe6CGP9BDzpaiVxXCbyquZvmyLjUmc 6AUQ4WJi9Irgjx5Z3qGKkjCZylHxcxqAudGOxXNdeOvNfX958LIEjWLcqMESlgikoAtf5l4grEmTrMSM tvW0pZJU6gZyaoiMseTYiEEgtKqL1C929XMF5ZEguIC LjpipjPUs8a7kjBcSjPRAdhM8oCNR1dA9DXwiyVFQiknifJIe4BNksJLBruzizFrU4ZJirTCSbeTc1ZH zjCUUocnO0TcdrNIJniGgjLHeiEIOnJytnLVoqELDnOSY4QlVyMSPtj6Gvrjk2MlTmLiLuVNAIBrammK MoMBD9DSJ0ZiFlFIKwIgdmAFRxQE5wuHhjlUc1iCmtK KVquxA9aLPnZDwqn5vrZSH8k1akorhrQHQqRZkqKs9jeIEltFsyHlXkLJFsQHm4dM03JLZolQ0biXCiA To1TTZjnuEfqXmyeR9jMoYwNFYGsNOgbC7owmJprXBjK7IfFSW9WYHbaeFoTAUlQwIkFUJhdrmoEVJHN EHpW9AtlZ4sP0jcRFZuMQUfisZySHHwdGilmM5pQpNM SRvsIWZzZUKVXZzhYJCrx1ZkBYZcfaHIWVLzO9YeiRFwYJhfN7MlWNfrEWRcpi3kkWkqFaOeWZ7pVE4y NHXjWLYjLhBsXJSergbdJVJiD4u5WKfvVdgqTC2fCRewKhGwBE2oCMCmgvTLvF3aESsdeKYwKJJtXQTi mYTduIPda7Uxs1RkI6jmMR1oIRCnkGSyX1bpo0TeRN5 cLDHuXLAmb3YyZ6BtkVCcrCQyrJTmjLHslFWwfOBdcCMcIGM tDKapMPHnQgUwqESqcSdjNMR1Ye1= Immediate Adequate cellularity, favor malignant Assessment (test code = 9837) Major MALIGNANT A Classificati on (test code = 9839) Diagnosis h4xbvPOoSMBudBF1OHBrRDDyr0zve8IdeZGxbJOgRSsgfSGrueYomf67wTO2fH97EZ4tZCWvWeA4ESNl rrW3Qpg2FELeRYJvkHReB262s0yar8xldgDfmYQ1qRxwDMMhSJCyDKvvGVYgLzDnRS7hGODzE6AtUXTu GPefVIMyYSTuccRalsUcJWhaGSOzkOovOXShw952FHZ (test code = sFgjnEJCdoUj3UeIznSimClVjWWKRH9GFYMNAXGYSSJDXBsUOITRPVUUDNGXLY1CEDoUQJs6BPYBHWSM ZUX7TD4WUZ5ySXDXizi8= 34) Comment n4fzgEUtISMhnYD4AWXcGQPuc5gxf3VkyVAtfXTxGUkrkUTmugNmwk93oZN2lO46ZN8qZHFwOzE2SBGm ppY6Ipk4SSOfEKJqoUUzJ357v9qnn4wfwiYosHJ2rCelWLSwZRCfLDcoVPNuWqHpOWpqMHGliOauRxzd G8arxYVgkMFbZAUqs18jrOFtks0tUBUltjSecIJ1zI1 (test code = vmSE7b0ouhiKuEM0yr7fnThA7cUArOzaeSEboPJxeH70uo1luUkdyR XJ9 9835) Retained/Bio r4ppeEMaLIXxePR8DEFoPZOww3ybl9FdvPBggETdJMdxuRMwnyFicj82yEX6gP85XS3dFEMcEdT4REGt efN5Itq1VOMfXFGrqWFfX555r4lrv0mvxwHkgFJ3gNwpKRDkLEPnGBekNWPpOiOiDqV5BIvnFFL1PSZc zjnmvVicQVSFuS5vXBDaw6Yty76lLJBlCdE7ECDqrdM marker NBWvaMGEio0GeOnXtELIiwkycwUJeeGNmTMAlu75xngimraIFOKI1dP6zZjNepYVgZJreDnKzYRhbroc kKOUPNRuiO3EvvONWwX4lmcirPe7pwAKaKW1OWBFRXKQ3MC6wSQVrraWFALuhJHJ6FLomhk34CWE5g0s kuBUjIYheWeaowGEqajV6GWqQIZIZZDjJUyMqEB2aSI Testing wYX9HAIUmRRpqiBKL9CAgaoLL9w0twtNPgs4z1FTjkOXN8dK5rc1qwgMYkOPhrYkeslLAvlyW2KGcLSQ QDFLcNCfRmPE2gRMmSN2YJIgW7OgK4YxK9VYlemHmsGbctxhVnzKQjLuAhgK8jkBevaA8tSmYwVQmjCK BxWeyLOZCFEBghBKNkp6HiT2J4RRRbCBbek5nyOGKkO (test code = Ukpr0OaTHtIRDABRD5XCY6yeGX7QDxJDNIAI9wRpZN5RdbizHB5Ei40CPFpMOSgiFTaTOjyY666Yp50L PSjPLqfb7ueGVNfCLzwo1XcQNuBIATDEU7XED7lsZD6WQoABFUSGGqyEJK8RRszhJU5t9xvgFQlq5c1A PrdIBP2gMbhyKHctyqiktVlQGUambrwnCJrmAztFTnr 9838) ESWtmKFhOXZzV17FMzCQDZKJM76DSAIPJGZRG0ZMV9gGLWY4YhtejAP6OO9kQUC1HNyjVXCdZ43MZjUY QWCYH81CVLKHOBOBC2CJOKSVZNwYO2TGMI6DMBHDVYCYRX1QLLeQCnYGOFbPA1HDYR2ETZJQCHPWXW1E RqPmTPjVB6URD4pVDLWgHSEBCCQJBZZkPhIHCV6nKNg 2Fw9zN2lhWSXyQkT4YkzwUou7AOx9Mmh4Rk6zS5gyOCRyHyB2SjowNuk9ALy1WARPTJSSCS5ZEWJUU15 LAERKDMSCS1XVHBTGVkTMSRFPA03WDJCYHKRYA4LJV3xLOMXCYuMKEFNRS00WSSRWOIQVQ6SHJNXTORU QIaMQCtYRZV9LREVCAQAWZA1VIUhSFnWtQRTEF6AFOz UNM7qvOWGDUQYJZPRxRD6FjC== Informationa g3wexBSeIFTuiNHkBvRoHUTjFKBry2hmWWUqsXSvMdUmWkRaWxPdHltzqXPmMKLnBdPdq3lbj057zTLq f8nnKUUbYpE2zOVxPEXmyOFfN042UGHdWGskt2zva0UrZRZdrPUqj7X6HUGYOBtgHNKCMXr2b6viTkYp OsJ0oBSkSMesE4mmguYquWDrRVJeVTy2mM78FFQoiM8 l Points ogIEwCKrhuxSaTiS2OXvzEPLhGmR2ITXrrGXdJOJcJ9jqOUZkPVjlORYnHYjicGQjAVZ7pVrdz1L0tGY pnLTlyFzbQeGvQjOnMzJQy6GnPGi9fRymX2AtCKUgCeO2zMJdVPBfLKhxCHZiGBTpibT2pR59XZvdaxQ 5cJGus2Hdq53io199zL1pkWAbEGY7FATuTPDpmWLaWE (test code = IqOSR2SXBjjTPfY2huHQTaMI3rnatjWKjmCBivXZIsbPX9BBMmcIMoX2WnXSAvMXruDSKrttu3MuPyHd 8vdTEiqMotJMzxq5fsh6ppnILvYoq0QEQrFzPvZfyiLBmux8Npg8qcIHDflr6zSHQ6yBTnwHmct6A0cJ BmSEVfxNFeibSiXBJxTxZ2AFmjAA4dex03UARtBGY5p 9836) r1mbNAyvFqeqrJmrYTzNAtrD8SmDXSlj111FQGmK8AfXGOxb7X3hvAdRgHcQWSlbZK9pgQ7ONQzBFu0a ATnwyZ6kwCieYYvC1xonU1oYSUfPP6kiulbu0eaWEaoJOxrIGFefNG3phL8CLKepMEeT1YsvI2yGBVsF JqjUGHagol0TcWaCm7grHVdbApsHFdrWtnkVKzdWQSi cwWoxxQgaJhoTNDrIGZaCZgjUZQcHFfcMBSoIVQqLiPthWhjgCppwW4bEwAzAqStZSxsRO9cICHlA5jo lMQuELTwQMLrA2sbUuUtkR9qhMhrRRheetY1VXcfQ23pQBC5AZX4slDkOESkbvYaSYWwOIYvJX7ntWIp FWKbAJAtQK2cOLH0RLgaoUXjYDWtTENxOLVuu4RzKT0 nBROtxYBiXGB5WXCnp8MbS7HlBUC0YHOcrA3kSXVvgCLMTZJNXPXCekQpwqTynoPJTBOhy5wgG2btVN8 rUKagHp5cNAIzyokhOXNcbXWdpwKvHEMiFGEsTKDwe5UwHOnuevIaog34WNSeZZ8vt9QnB0ttmUSjjTq 9OFOdQISpWJWqv0XkCZHlui64ECBbLnqafVbuVQHkTe 6fGi5fJTAeajTvDMJ3YsUXZS2hioxpyCLihOzkjk4nGQOeOFggKEAbWSPsFyNynRYaHcZuQvGgsRnqwE tqYujqWjKsOVJjCCfaH4yoJgAxZyOtLvwzXVS3 Lab Abnormal Interpretati on (test code = 89293-3) AndersonENDOSCOPY NOTE [id number] 18:30:10CoLindsey Larios MD - 01/27/2020 1:30 PM CDTPatient Name: Khadijah GabrielGender: FemaleMRN: [id number]: 64Procedure Date No Time: 01/27/2020Instrument Name: 4034 TGF-UC,5101 EGD-HX377Kqnczfprrhksk(s): TOM MYERSrocedreza Name: Upper EUSScope In: 1:53:58 PMScope Out: 2:45:41 PMTotal Procedure Duration Time 0 hours 51 minutes 43 seconds Patient Profile: This is a 64 year old female with a 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 Here for EGD EUS.Indications: Suspected solid pancreatic neoplasmMedications: Total IV Anesthesia (TIVA), [id number] Description: Pre-Anesthesia Assessment: - Prior to the [...] oxygen saturations were monitored continuously. The Olympus [id number]-IIW371 ([id number]) linear echoendoscope - (12.6 mm dm) was introduced through the mouth, and advanced to the second part of duodenum. The Olympus GIF-HQ190 ([id number]) upper endoscope - (9.9 mm dm) was [...] were made with the 25 gauge needle ([employer]) using a transduodenal approach. A stylet was used. A power generation technician was present and performed a preliminary cytologic [...] tronically.Number of Addenda: 0MD AndersonCOVID-19 (SARS-CoV-2) PCR-Asymptomatic [id number] 01:17:09 Test Item Value Reference Range Interpretation Comments COVID19 (SARS Not Detected Not Detected This test is a CoV-2) Result qualitative (test code = reverse-transcr iptase 19555-4) polymerase nellie n reaction (RT-PC R) developed for t he [employer] BALTAZAR 680 0 system and inte nded [...] were verified by the Microbiology Laboratory at [facility]. Results must be interpreted within the context of all relevant clinic al and laboratory find ings and should not form the sole basis for a diagnosis or treatment decision.Retail Interior Designer al controls are in cluded to assess [...] te sting if clinically indicated. COVID19 SARS DRY PLASTERER Swab Source (test code = 99777) COVID19 SARS Pre-Out of OR Indication (test Procedure code = 73399) MD VinesCT Chest Abdomen Pelvis with and without [id number] 16:23:52 Unusual pancreatic head mass. While qualitatively, [...] THE ABDOMEN AND PELVIS:Nature of study: Baseline [facility] imaging evaluation Pancreas: There has been interim [...] nodules can be managed by short-term follow-up.MD VinesTMHussein Interpretation Antibody Screen [id number] 15:39:40 Test Item Value Reference Range Interpretation Comments TMP Auto Neg At the present ABSC Interp time, patient (test code = plasma shows no FE RNANDO 7535) evidence of RBC LORENA,Dic tated by: alloantibodies. DAVID CARRILLO,Dictat ed Date/Time: 12.24 10:39 AM CDT Transcribed Date/Time: 12.24 10:39 AM CDTElectronical ly Signed By: TUYET CARRILLO, on 01.16.2020 10:3 9 AM MD VinesFractionated [id number] 15:18:59 Test Item Value Reference Range Interpretation [...] schedule MONIE) EARLY AM MD VinesGlomerular Filtration [id number] 15:18:58 Test Item Value Reference Range Interpretation [...] According to th e [employer]'s dney Disease Outcome Quality Initiat paola (KDOQI) [...] According to th e [employer]'s dney Disease Outcome Quality Initiat paola (KDOQI) [...] code = MONIE) EARLY AM MD VinesTotal [id number] 15:18:57 Test Item Value Reference Range Interpretation Comments Total Protein (test 6.8 g/dL 6.4-8.3 code = 7649) MONIE (test code = MONIE) Please schedule EARLY AM MD VinesAlkaline Aooaalgtjgy0719-83-45 15:18:56 Test Item Value Reference Range Interpretation Comments Alk Phos (test code = 67 U/L 35-104 4768) MONIE (test code = MONIE) Please schedule EARLY AM MD VinesBwdlmpbpYHI1738-31-78 15:18:53 Test Item Value Reference Range Interpretation Comments ALT (test code = 10 U/L <=33 4705) MONIE (test code = MONIE) Please schedule EARLY AM MD VinesCalcium [id number] 15:18:52 Test Item Value Reference Range Interpretation Comments Calcium Lvl (test code 9.9 mg/dL 8.4-10.2 = 5258) MONIE (test code = MONIE) Please schedule EARLY AM MD Vines.Serum Lunmdolhuz7910-40-98 15:18:51 Test Item Value Reference Range Interpretation Comments Creatinine (test code = 0.69 mg/dL 0.51-0.95 5399) MONIE (test code = MONIE) Please schedule EARLY AM MD VinesAlbumin Dsihe7029-06-14 15:18:50 Test Item Value Reference Range Interpretation Comments Albumin Lvl (test code 4.6 3.5- 5.2 gm/dL = 4763) MONIE (test code = MONIE) Please schedule EARLY AM MD VinesFuiqkuxgUAA0777-08-90 15:18:49 Test Item Value Reference Range Interpretation Comments BUN (test code = 17 mg/dL 6-23 5055) MONIE (test code = MONIE) Please schedule EARLY AM MD VinesAspartate [id number] 15:18:48 Test Item Value Reference Range Interpretation Comments AST (test code = 15 U/L <=32 4731) MONIE (test code = MONIE) Please schedule EARLY AM MD VinesElectrolyte [id number] 15:18:47 Test Item Value Reference Range Interpretation [...] = MONIE) Please schedule EARLY AM MD Dixon [id number] 15:18:46 Test Item Value Reference Range Interpretation Comments CA 19-9 (test code = 212.5 U/mL <=35.0 H Results greater 5171) than 9500 U/mL may not be reliable due to matrix effect with extended diluti on as it exceeds t he disc ruler operator s recommended limit. Caution should be exercised when interpreting garcia ch values and done in conjunction wit h clinical contex t. MONIE (test code = MONIE) Please schedule EARLY AM Lab Interpretation Abnormal (test code = 01772-0) MD VinesGlucose [id number] 15:18:45 Test Item Value Reference Range Interpretation Comments Glucose Level (test 124 mg/dL 70-99 H Referenc e range is code = 5699) valid for fasti ng specimens only. Guidelines established by the [place] [employer] guidelines (Standards of Medical [...] different day, meet the criteria for diabetes carol gresham. MONIE (test code = MONIE) Please schedule EARLY AM Lab Interpretation Abnormal (test code = 96949-1) [facility] [id number] 15:10:32 Test Item Value Reference Range Interpretation Comments POC Crea (test 0.6 mg/dL 0.6-1.3 Medications, especially code = hydroxyurea or supplements, 36714-0) such as ascorba te, can interfere with test results causing a false ly and significantlyhi gher result than expected. If a problem is suspected wi th a patient's resul t, a sample should be sent to the laboratory for confirmatory testing. POC eGFR-AA 110 >=60 mL/min/1.73 Normal eGFR >= 60 (test code = m2 mL/min/1.73 [place]2 [place] [address]-2) calculated robby velasquez the CKD-EPI equation. The e GFR declines [...] = m2 mL/min/1.73 m2 [place] [address]-6) calculated usin g the CKD-EPI equation. The [...] . (test code = 6672) MD VinesAntibody [id number] 14:36:52 Test Item Value Reference Range Interpretation Comments ABSC. (test code = Negative ABSC 890-4) MONIE (test code = MONIE) Please schedule EARLY AM MD [id number] 14:36:21 Test Item Value Reference Range Interpretation Comments ABORh. (test code = AB POS 882-1) MONIE (test code = MONIE) Please schedule EARLY AM MD VinesClot Expiration [id number] 14:36:20 Test Item Value Reference Range Interpretation Comments T & S Expiration (test code = 01/19/2020 5318) MD VinesConfirm [id number] 14:30:05 Test Item Value Reference Range Interpretation Comments ABORh Confirm. (test code = 882-1) AB POS MD VinesPartial Thromboplastin [id number] 13:58:02 Test Item Value Reference Range Interpretation Comments PTT (test code = 29.8 24.2- 36.0 second(s) 6773) MONIE (test code = Please schedule EARLY MONIE) AM MD VinesProthrombin Time with [id number] 13:58:01 Test Item Value Reference Range Interpretation Comments PT (test code = 13.5 12.0- 14.3 second(s) 6746) INR (test code = 1.06 0.90-1.10 5973) MONIE (test code = Please schedule EARLY MONIE) AM MD VinesHemoglobin [id number] 13:02:08 Test Item Value Reference Range Interpretation Comments A1C (test code 5.6 % 4.3-5.6 HbA1c values >=6.5% = 4632) are diagnostic of diabetes mellitus.Diagno sis should be confi rmed by repeat testing.Therape utic Action suggeste d: >8.0% HbA1c; Go al oftherapy: <7.0 % HbA1c MONIE (test code Please schedule = MONIE) EARLY AM MD VinesComplete Blood Count w/o [id number] 12:32:58 Test Item Value Reference Range Interpretation [...] RDW-SD (test code = 39.3 fL 35.1-46.3 30991-4) RDW-CV (test code = 12.5 % 12-15.5 [...] AM Lab Interpretation Abnormal (test code = 86928-9) MD VinesMD COVID-19 (YASMINE-CoV-2) PCR [id number] 11:57:47 Test Item Value Reference Interpretation Comments Range COVID19 SARS New Patient Indication (test code = 88061) COVID19 SARS Result Not Detected Not Detected (test code = 98656-0) COVID19 SARS SARS-CoV-2 NOT Detected. Interpretation (test Reference Range: Not code = 71188) Detected Methodology: The [employer] RealTime SARS-CoV-2 assay is a qualitative real-time reverse business excellence leader polymerase chain reaction (mixing tank operator-PCR) test to detect RNA from SARS-CoV-2 in nasal, nasopharyngeal and oropharyngeal swabs from patients with signs and symptoms of infection who are suspected of COVID-19 by their health care provider. The [employer] RealTime SARS-CoV-2 performed on the [employer] REO000 System is a dual target assay with [...] sole basis for patient management decisions. The [employer] RealTime SARS-CoV-2 assay is for in vitro diagnostic use under FDA Emergency Use Authorization only. Testing is limited to laboratories certified under the Clinical Laboratory Improvement Amendments of 1988 (CLIA), 42U.S.C. 263a, to perform high complexity tests. The Test was performed by the CLIA-certified, high-complexity Molecular Diagnostics Laboratory (M[facility]) at [facility] under the Food and Drug Administration (FDA) s Emergency Use Authorization. Factsheet for patients: https://www.[facility].org/ AbbottFactSheetPatientsFact sheet for healthcare providers: https://www.[facility].org/ AbbottFactSheetHCP Test performed by:[facility] [address] [place] [address] SaragosaMR Lumbar Spine W Wo [id number] 19:44:35Hm Interface, Radiology Results 01/13/2020 7:47 PM [...] spine, notably at L4- 5 as detailed above.HMRM-MPHYBXNHouston MethodistPOC [id number] 18:00:23 Test Item Value Reference Range Interpretation Comments POC creatinine (test 0.7 mg/dl 0.5-0.9 Operato r Name: Mingo code = 42663-8) Fran ce ID: [id number] [facility] MethodistEstimated [id number] 18:00:23 Test Item Value Reference Range Interpretation Comments Estimated GFR (test 90 mL/min/1.73 m2 [facility] code = 60543-7) Interpretati onG1 >=90 Normal or highG2 60-89 Mildly jftbhzgcbW4q 45-59 Mildly to mode rately rpisxppxcE6t 30-44 Moderately to severely decreasedG4 15-29 Severely decre asedG5 <15 Kidn ey failureThe eGFR was calculated robby g the Chronic Kidney Disease Epidemiology Co llaboration (CKD-EPI) equat ion. Interpretation is based on recommendations of the National Kidney Foundation-Kidn ey Disease Outcomes Qualit y Initiative (NKF-KDOQI) pub lished in 2014. Maikol Romero US Abdominal [id number] 04:42:54For comparison only. No interpretation requested.MD Barajas Nuclear Diagnostic Exam 2020-01-11 04:42:32For comparison only. No interpretation requested.MD Vines OSI CT [id number] 04:42:17For comparison only. No interpretation requested.MD Barajas MRI [id number] 04:42:00For comparison only. No interpretation requested.MD Jones Abd/Pelvic External [id number] 10:11:02This exam was not acquired at a [facility] facility and has not been interpreted by a [employer] Provider. The exam was imported into our imaging system.Maikol TelloCT Abd/Pelvic External [id number] 10:09:52This exam was not acquired at a [facility] facility and has not been interpreted by a [employer] Provider. The exam was imported into our imaging system.Maikol Tello
--- NOTE | 2020-04-02 17:26 | RAD REPORT ---
EXAM DESCRIPTION: RAD - Chest Single View - 04/02/2020 5:18 pm CLINICAL HISTORY: chest pain, palpitations COMPARISON: Portable February 15 TECHNIQUE: AP portable chest image was obtained 04/02/2020 5:18 pm . FINDINGS: No focal lung parenchymal process. Interstitial markings are accentuated by the more shall ow inspiration when comparing to the February 15 study. Right-sided Port-A-Cath remains in place. Heart and vasculature are normal. No measurable pleural effusion and no pneumothorax. No acute bony abnorm ality seen. No acute aortic findings suspected. IMPRESSION: No acute cardiopulmonary process. Chronic interstitial pattern could potentially mask early interstitial edema or infiltrate.
[2020-04-02 17:27] LABS: Absolute Lymphocytes (CBC) 2.5 K/uL (0.7-4.9); Basophils % 0.7 % (0-1.3); Hematocrit 33.8 % (36.0-45.0); Lymphocytes % 23.7 % (15.3-44.8); MPV 9.4 fL (7.6-11.3); RBC Red Blood Cell Count 3.91 M/uL (3.86-4.86)
[2020-04-02 17:28] LABS: Protime INR 1.03
[2020-04-02 17:44] LABS: ALT/SGPT 63 U/L (12-78); AST/SGOT 21 U/L (15-37); Albumin 3.6 g/dL (3.4-5.0); Alkaline Phosphatase 188 U/L (45-117); BUN Blood Urea Nitrogen 13 mg/dL (7-18); Bicarbonate 28 mmol/L (21-32); Bilirubin Direct < 0.1 mg/dL (0-0.2); Bilirubin Total 0.2 mg/dL (0.2-1.0); Glucose Level 103 mg/dL (74-106); Magnesium 2.3 mg/dL (1.8-2.4); NT PRO-BNP 106 pg/mL (<125); Potassium 3.5 mmol/L (3.5-5.1); Protein, Total 7.2 g/dL (6.4-8.2); Sodium Level 143 mmol/L (136-145); Troponin (Emerg Dept Use Only) < 0.02 ng/mL (0.0-0.045)
[2020-04-02 17:51] LABS: Blood Morphology Comment NOT SEEN (NOT SEEN); Platelet Estimate ADEQ; White Blood Cell Scan OK (OK)
--- NOTE | 2020-04-02 17:59 | RAD REPORT ---
EXAM DESCRIPTION: CT - Chest For Pe Angio - 04/02/2020 5:34 pm CLINICAL HISTORY: chest pain, palpitations, hx of cancer COMPARISON: Chest Single View dated 04/02/2020 TECHNIQUE: Dynamically enhanced 3 mm thick images of the chest were obtained during administration o f approximately 150mL Isovue 370 IV contrast. Coronal and oblique MIP reconstruction images were gene rated and reviewed. Exam utilizes a protocol to evaluate the pulmonary arterial tree. All CT scans are performed using dose optimization technique as appropriate and may include automated exposure control or mA/KV adjustment according to patient size. FINDINGS: No pulmonary emboli are identified. The aorta as imaged shows no acute or suspicious finding. No pericardial thickening or effusion. No acute infiltrates seen. A 4 millimeter pulmonary nodule is seen lateral right upper lobe (image 39 /116). No further recommendation for a nodule of this size. No interstitial edema. Trace amount of at electasis present. No pleural effusion or pleural thickening. No mediastinal or hilar suspicious masses. No chest wall masses or abnormal axillary lymphadenopathy. IMPRESSION: No pulmonary emboli identified. No other significant or suspicious findings.
--- NOTE | 2020-04-02 18:10 | ER ---
Nurse's Notes [facility] Name: Khadijah Gabriel Age: 64 yrs Sex: Female : 1955 Arrival Date: 04/02/2020 Time: 16:01 Bed 6 Private MD: Diagnosis: Chest pain, unspecified Presentation: 04/02 16:07 Chief complaint: Patient states: HR has been elevated for 2 days. HR 92 yesterday. HR ll1 110-121 today. + palpitations. Slight L CP at times. Coronavirus screen: Client denies travel out of the [place] in the last 14 days. At this time, the client does not indicate any symptoms associated with coronavirus-19. Ebola Screen: Patient denies travel to an Ebola-affected area in the 21 days before illness onset. Initial Sepsis Screen: Does the patient meet any 2 criteria? HR > 90 bpm. No. Patient's initial sepsis screen is negative. Does the patient have a suspected source of infection? No. Patient's initial sepsis screen is negative. Risk Assessment: Do you want to hurt yourself or someone else? Patient reports no desire to harm self or others. Onset of symptoms was April 01, 2020. 16:07 Method Of Arrival: Ambulatory ll1 16:07 Acuity: AKSHAT 3 ll1 Historical: - Allergies: 16:10 Codeine; ll1 - PMHx: 16:10 chemo for pancreatic CA; ll1 - PSHx: 16:10 None; ll1 - Immunization history:: Flu vaccine is not up to date. - Social history:: Smoking status: Patient denies any tobacco usage or history of. Screenin:44 Abuse screen: Denies threats or abuse. Nutritional screening: No deficits noted. tw2 Tuberculosis screening: No symptoms or risk factors identified. Fall Risk None identified. Assessment: 16:45 General: Appears in no apparent distress. comfortable, Behavior is calm, cooperative, em appropriate for age. Pain: Denies pain. Neuro: Level of Consciousness is awake, alert, obeys commands, Oriented to person, place, time, situation, Appropriate for age. Cardiovascular: Reports palpitations, Denies nausea, shortness of breath, Capillary refill < 3 seconds Patient's skin is warm and dry. Respiratory: Airway is patent Respiratory effort is even, unlabored, Respiratory pattern is regular, symmetrical. GI: Abdomen is flat, Patient currently denies nausea, vomiting. Derm: Skin is intact, is fragile, is thin. Musculoskeletal: Capillary refill < 3 seconds, Range of motion: intact in all extremities. 17:17 Reassessment: Patient appears in no apparent distress at this time. No changes from tw2 previously documented assessment. Patient and/or family updated on plan of care and expected duration. Pain level reassessed. Patient is alert, oriented x 3, equal unlabored respirations, skin warm/dry/pink. 18:27 Reassessment: turkey and cheese sandwich and bag of chips given to pt. em 19:05 Reassessment: Patient appears in no apparent distress at this time. Patient and/or jb4 family updated on plan of care and expected duration. Pain level reassessed. Patient is alert, oriented x 3, equal unlabored respirations, skin warm/dry/pink. 20:00 Reassessment: Patient appears in no apparent distress at this time. Patient and/or jb4 family updated on plan of care and expected duration. Pain level reassessed. Patient is alert, oriented x 3, equal unlabored respirations, skin warm/dry/pink. 21:30 Reassessment: Patient appears in no apparent distress at this time. Patient and/or jb4 family updated on plan of care and expected duration. Pain level reassessed. Patient is alert, oriented x 3, equal unlabored respirations, skin warm/dry/pink. Vital Signs: 16:07 BP 119 / 69; Pulse 98; Resp 17; Temp 97.6; Pulse Ox 100% ; Weight 56.25 kg; Height 5 ll1 ft. 3 in. (160.02 cm); Pain 3/10; 17:17 BP 126 / 72; Pulse 83; Resp 18; Pulse Ox 100% on R/A; tw2 18:27 BP 129 / 67; Pulse 90; Resp 18; Pulse Ox 99% on R/A; em 19:30 BP 127 / 69; Pulse 91; Resp 15; Pulse Ox 100% on R/A; jb4 20:30 BP 133 / 61; Pulse 95; Resp 16; Pulse Ox 98% on R/A; jb4 21:30 BP 123 / 61; Pulse 86; Resp 16; Pulse Ox 97% on R/A; jb4 16:07 Body Mass Index 21.97 (56.25 kg, 160.02 cm) ll1 ED Course: 16:01 Patient arrived in ED. ds1 16:09 Triage completed. ll1 16:10 Arm band placed on Patient placed in an exam room, on a stretcher. ll1 16:16 Placed in gown. Bed in low position. Call light in reach. monitoring manager on. Pulse ox tw2 on. NIBP on. Warm blanket given. 16:19 Branden Khan PA is PHCP. [facility] 16:19 José Vines MD is Attending Physician. [facility] 16:41 Hernandez Reeder, RN is Primary Nurse. em 16:59 EKG done, by ED staff, reviewed by Branden MORGAN. em 17:10 Initial lab(s) drawn, by nd, sent to lab. Inserted saline lock: 22 gauge in right em antecubital area, using aseptic technique. Blood collected. 17:18 XRAY Chest (1 view) In Process Unspecified. EDMS 17:35 CT Chest For PE Angio In Process Unspecified. EDAZ 18:10 Lisa Krause MD is Hospitalizing Provider. [facility] 18:17 Kayleigh Latif MD is Hospitalizing Provider. [facility] 19:08 Report given to ADEEL Gallagher and ADEEL Yadav. tw2 19:27 Primary Nurse role handed off by Hernandez Reeder, ADEEL [facility] 19:27 Tom Bello, RN is Primary Nurse. [facility] 22:30 No provider procedures requiring assistance completed. Patient admitted, IV remains in jb4 place. Administered Medications: 18:17 Drug: Aspirin Chewable Tablet 324 mg Route: PO; em 19:00 Follow up: Response: No adverse reaction [facility] Outcome: 18:10 Decision to Hospitalize by Provider. [facility] 22:30 Admitted to Med/surg accompanied by tech, via stretcher, with chart, Report called to michael ADEEL Polk 22:30 Condition: stable 22:30 Discharge instructions given to patient, Instructed on the need for admit, Demonstrated understanding of instructions. 23:04 Patient left the ED. bb Signatures: Dispatcher [employer] EDMS Branden Khan PA PA [facility] Hernandez Reeder, RN RN Mariia Tan ds1 Leyda Villarreal RN RN bb Sallie Torres RN RN tw2 Tom Bello, RN RN jb4 Kamron Anderson, RN RN ll1
--- NOTE | 2020-04-02 18:10 | EDPHYS ---
Physician Documentation [facility] Name: Khadijah Gabriel Age: 64 yrs Sex: Female : 1955 Arrival Date: 04/02/2020 Time: 16:01 Bed 6 Private MD: José Matute HPI: 04/02 16:22 This 64 yrs old Female presents to ER via Ambulatory with complaints of jmm Palpitations. 16:22 The patient or guardian reports chest pain that is located primarily in the substernal m area. Onset: gradually, 3 day(s) ago. The pain does not radiate. Associated signs and symptoms: Pertinent positives: palpitations, shortness of breath. The chest pain is described as a pressure, sharp. Duration: The patient or guardian reports multiple episodes. This is a 64 year old female with a history of pancreatic cancer, currently undergoing chemo therapy complains of chest pressure, shortness of breath, and elevated heart rate. Patient was advised to get an outpatient ekg but the facility was closed. . Historical: - Allergies: 16:10 Codeine; ll1 - PMHx: 16:10 chemo for pancreatic CA; ll1 - PSHx: 16:10 None; ll1 - Immunization history:: Flu vaccine is not up to date. - Social history:: Smoking status: Patient denies any tobacco usage or history of. ROS: 16:22 Constitutional: Negative for fever, chills, and weight loss, Abdomen/GI: Negative for jmm abdominal pain, nausea, vomiting, diarrhea, and constipation, Back: Negative for injury and pain, : Negative for injury, bleeding, discharge, and swelling. 16:22 Cardiovascular: Positive for chest pain. 16:22 Respiratory: Positive for shortness of breath. 16:22 All other systems are negative. Exam: 16:22 Constitutional: This is a well developed, well nourished patient who is awake, alert, jmm and in no acute distress. Head/Face: atraumatic. Eyes: EOMI, no conjunctival erythema appreciated ENT: Moist Mucus Membranes Neck: Trachea midline, Supple Chest/axilla: Normal chest wall appearance and motion. Cardiovascular: Regular rate and rhythm. No edema appreciated Respiratory: Normal respirations, no respiratory distress appreciated Abdomen/GI: Non distended, soft Back: Normal ROM Skin: General appearance color normal MS/ Extremity: Moves all extremities, no obvious deformities appreciated, no edema noted to the lower extremities Neuro: Awake and alert, normal gait Psych: Behavior is normal, Mood is normal, Patient is cooperative and pleasant Vital Signs: 16:07 BP 119 / 69; Pulse 98; Resp 17; Temp 97.6; Pulse Ox 100% ; Weight 56.25 kg; Height 5 ll1 ft. 3 in. (160.02 cm); Pain 3/10; 17:17 BP 126 / 72; Pulse 83; Resp 18; Pulse Ox 100% on R/A; tw2 18:27 BP 129 / 67; Pulse 90; Resp 18; Pulse Ox 99% on R/A; em 19:30 BP 127 / 69; Pulse 91; Resp 15; Pulse Ox 100% on R/A; jb4 20:30 BP 133 / 61; Pulse 95; Resp 16; Pulse Ox 98% on R/A; jb4 21:30 BP 123 / 61; Pulse 86; Resp 16; Pulse Ox 97% on R/A; jb4 16:07 Body Mass Index 21.97 (56.25 kg, 160.02 cm) ll1 MDM: 16:22 Patient medically screened. ofelia 18:09 The patient was given aspirin in the Emergency Department. Data reviewed: vital signs, [facility] nurses notes, lab test result(s), EKG, radiologic studies, CT scan, plain films. ED course: . 04/02 16:36 Order name: Basic Metabolic Panel; Complete Time: 17:48 [facility] 04/02 16:36 Order name: CBC with Diff; Complete Time: 17:52 [facility] 04/02 16:36 Order name: LFT's; Complete Time: 17:48 [facility] 04/02 16:36 Order name: Magnesium; Complete Time: 17:48 [facility] 04/02 16:36 Order name: NT PRO-BNP; Complete Time: 17:48 [facility] 04/02 16:36 Order name: PT-INR; Complete Time: 17:36 [facility] 04/02 16:36 Order name: Troponin (emerg Dept Use Only); Complete Time: 17:48 [facility] 04/02 17:51 Order name: CBC Smear Scan; Complete Time: 17:52 [facility] 04/02 19:26 Order name: Thyroid Stimulating Hormone [facility] 04/02 19:26 Order name: Troponin I [facility] 04/02 19:26 Order name: Troponin I [facility] 04/02 19:26 Order name: Troponin I [facility] 04/02 19:26 Order name: Troponin I [facility] 04/02 19:26 Order name: Troponin I [facility] 04/02 16:36 Order name: XRAY Chest (1 view); Complete Time: 17:31 [facility] 04/02 16:36 Order name: EKG; Complete Time: 16:37 [facility] 04/02 16:36 Order name: Cardiac monitoring; Complete Time: 17:16 [facility] 04/02 16:36 Order name: EKG - Nurse/Tech; Complete Time: 16:55 [facility] 04/02 16:36 Order name: IV Saline Lock; Complete Time: 17:16 [facility] 04/02 16:36 Order name: Labs collected and sent; Complete Time: 16:42 [facility] 04/02 16:36 Order name: O2 Per Protocol; Complete Time: 16:42 [facility] 04/02 16:36 Order name: O2 Sat Monitoring; Complete Time: 16:42 [facility] 04/02 16:36 Order name: CT Chest For PE Angio; Complete Time: 18:01 [facility] 04/02 19:26 Order name: Regular EDID Administered Medications: 18:17 Drug: Aspirin Chewable Tablet 324 mg Route: PO; em 19:00 Follow up: Response: No adverse reaction jb4 Disposition: 04/03 17:53 Co-signature as Attending Physician, José Vines MD I agree with the assessment and ofelia plan of care. Disposition: 04/02/20 18:10 Hospitalization ordered by Kayleigh Latif for Observation. Preliminary diagnosis is Chest pain, unspecified. - Bed requested for Telemetry/MedSurg (observation). - Status is Observation. bb - Condition is Stable. - Problem is new. - Symptoms are unchanged. Signatures: Dispatcher [employer] EDID José Vines MD MD cha Mickail, Joel, PA PA [facility] Hernandez Reeder, RN RN em Leyda Villarreal RN RN bb Kamron Anderson RN RN ll1 Leif Mckeon tt3 Tom Bello RN jb4 Corrections: (The following items were deleted from the chart) 04/02 18:17 18:10 Hospitalization Ordered by Lisa Krause MD for Observation. Preliminary [facility] diagnosis is Chest pain, unspecified. Bed requested for Telemetry/MedSurg (observation). Status is Observation. Condition is Stable. Problem is new. Symptoms are unchanged. [facility] 21:20 18:17 04/02/2020 18:10 Hospitalization Ordered by Kayleigh Latif MD for Observation. tt3 Preliminary diagnosis is Chest pain, unspecified. Bed requested for Telemetry/MedSurg (observation). Status is Observation. Condition is Stable. Problem is new. Symptoms are unchanged. [facility] 23:04 21:20 04/02/2020 18:10 Hospitalization Ordered by Kayleigh Latif MD for Observation. bb Preliminary diagnosis is Chest pain, unspecified. Bed requested for Telemetry/MedSurg (observation). Status is Observation. Condition is Stable. Problem is new. Symptoms are unchanged. tt3
[2020-04-02] MEDS ORDERED: ASPIRIN 81 MG CHEWABLE TABLET ONE (18:28)
[2020-04-02] MEDS ORDERED: MORPHINE 2 MG/ML SYR IV PRN (19:17)
[2020-04-02] MEDS ORDERED: ONDANSETRON 4 MG/2 ML VIAL IV PRN (19:19)
[2020-04-02] MEDS ORDERED: ACETAMINOPHEN 325 MG TABLET PO PRN (19:19)
[2020-04-02] MEDS ORDERED: LORAZEPAM 0.5 MG TABLET PO PRN (19:19)
[2020-04-02] MEDS ORDERED: ALPRAZOLAM 0.5 MG TABLET PO PRN (19:21)
[2020-04-02] MEDS ORDERED: HYDROCODONE/APAP 5/325 MG TAB PO PRN (19:21)
--- NOTE | 2020-04-02 19:32 | P.HP ---
Certification for Inpatient Patient admitted to: Observation With expected LOS: <2 Midnights Patient will require the following post-hospital care: None Practitioner: I am a practitioner with admitting privileges, knowledge of patient current condition, hospital course, and medical plan of care. Services: Services provided to patient in accordance with Admission requirements found in Title 42 Section 412.3 of the Code of Federal Regulations Patient History Date of Service: 04/02/20 Reason for admission: palpitations History of Present Illness: 64-year-old female with past medical history of HTN, HLD, hypothyroidism on Synthroid replacement, history of pancreatic cancer started on chemo 6 weeks ago Q O2 weekly with Folfirinox, history of cardiac murmur , history of regular cardiology visits with scheduled Q 3 years stress test, last was 1 year ago and unremarkable. She has reportedly negative cardiac catheterization 4 years ago presented to the after developing intermittent palpitations, first noted during routine vitals checked at home found to have a heart rate to the 90s from a previous baseline more 60s. She subsequently developed intermittent palpitation radiating from the left side of the chest up to the neck area. She denies any actual chest pain. She states palpitation is fleeting and intermittent. She presented to the ER today after calling in a community organization worker and advice to come in for checkup. She states at home iliac today heart rate was as high as 120s. On arrival in the ED EKG is showing normal sinus reading with intermittent PVCs heart rate is ranging from 80s to 170s. She denies any shortness of breath. No leg swelling. She has a CTA with no evidence of pulmonary emboli seen. She has been admitted for rule out ACS She is a lifelong nonsmoker. She has a history for history of coronary artery disease in the father in his 70s. She denies any nausea or vomiting. Allergies codeine Allergy (Verified 02/12/20 14:58) Itching/Hives/Rash Home Medications: ALPRAZolam [Xanax] 0.5 mg PO BID PRN 02/12/20 Ascorbic Acid [Vitamin C] 500 mg PO DAILY 02/12/20 Hydrocodone 5/APAP 325 [[place] 5/325] 1 tab PO Q6H PRN 02/12/20 L.acidoph,Paracasei, B.lactis [Probiotic] 1 each PO DAILY 02/12/20 Magnesium Oxide [Mag 0X Tab] 400 mg PO DAILY 02/12/20 Melatonin 10 mg PO DAILY 02/12/20 Rizatriptan Benzoate [Rizatriptan] 10 mg PO PRN PRN 02/12/20 Thyroid,Pork [[place] Thyroid] 15 mg PO DAILY 02/12/20 Thyroid,Pork [[place] Thyroid] 60 mg PO DAILY 02/12/20 Tizanidine HCl [Zanaflex] 4 mg PO DAILY 02/12/20 Tramadol HCl [Ultram] 50 mg PO PRN PRN 02/12/20 clonazePAM [Klonopin] 1 mg PO DAILY 02/12/20 - Past Medical/Surgical History Has patient received pneumonia vaccine in the past: No -: Hypertension, hyperlipidemia, hypothyroid disease, anxiety disorder, -: Pancreatic head adenocarcinoma of on Q three-week chemo Review of Systems Unremarkable Cardiovascular: Palpitations Gastrointestinal: Abdominal Pain (epigastric area - mild and dull ) Physical Examination - Vital Signs Blood Pressure: 118/69 Pulse: 86 Respirations: 16 - Physical Exam General: Alert, Oriented x3 HEENT: Atraumatic, Normocephalic Neck: Supple, 2+ carotid pulse no bruit, JVD not distended Respiratory: Clear to auscultation bilaterally, Normal air movement Cardiovascular: No edema, Normal pulses, Regular rate/rhythm, Normal S1 S2 Gastrointestinal: Normal bowel sounds, Soft and benign, Non-distended Musculoskeletal: No clubbing, No swelling Integumentary: No rashes, No breakdown Neurological: Normal gait, Normal speech, Normal strength at 5/5 x4 extr, Normal tone External genitalia: No edema, No lesions - Studies Laboratory Data (last 24 hrs) 04/02/20 17:10: PT 12.1, INR 1.03 04/02/20 17:10: WBC 10.7, Hgb 11.6 L, Hct 33.8 L, Plt Count 157 04/02/20 17:10: Sodium 143, Potassium 3.5, BUN 13, Creatinine 0.77, Glucose 103, Magnesium 2.3, Total Bilirubin 0.2, AST 21, ALT 63, Alkaline Phosphatase 188 H Assessment and Plan - Problems (Diagnosis) (1) PVC (premature ventricular contraction) Current Visit: Yes Status: Acute (2) Frequent PVCs Current Visit: Yes Status: Acute (3) Hypokalemia Current Visit: Yes Status: Acute (4) Pancreatic adenocarcinoma Current Visit: Yes Status: Acute (5) Chemotherapy adverse reaction Current Visit: Yes Status: Acute Discharge Plan: Home Plan to discharge in: 24 Hours - Advance Directives Does patient have a Living Will: No Does patient have a Durable POA for Healthcare: No - Code Status/Comfort Care Code Status: Full Code Physician Review Additional Text: #Rule out active coronary syndrome-no actual chest pain. -we still rule out serial set of cardiac enzymes. -initial Troponin negative testing-EKG unremarkable except for PVCs -history of negative stress test 1 year ago noted # Intermittent palpitations-may be due to PVCs -Obtain TSH level -Resume Synthroid -magnesium level normal -Borderline low potassium may be causing mild arrhythmia, replace potassium and follow # history of pancreatic cancer-on enzyme replacement continue creon #History of hypothyroidism-continue Synthroid 75 mics daily Follow tsh #DVT-subcutaneous Lovenox Advanced directives-full code Disposition-possibly discharge in a.m. if negative sets of cardiac enzymes Time Spent Managing Pts Care (In Minutes): 65
[2020-04-02] MEDS ORDERED: POTASSIUM PHOS 30 MM in NA CHLORIDE 0.9% 500 ML IV ONE (20:30)
[2020-04-02 23:20] VITALS: O2SAT 97
[2020-04-02 23:32] VITALS: BMI 21.9
[2020-04-03] MEDS ORDERED: clonazePAM 0.5 MG TAB PO PRN (00:11)
[2020-04-03] MEDS ORDERED: MELATONIN 5 MG TABLET PO SCH (00:12)
[2020-04-03] MEDS ORDERED: POTASSIUM PHOS IN 0.9 % NACL 30 MMOL/500 ML BAG IV ONE (00:43)
[2020-04-03] MEDS ORDERED: NA CHLORIDE 0.9% 250 ML ONE (01:24)
--- NOTE | 2020-04-03 04:54 | P.DS ---
Admission Date: 04/02/20 Discharge Date: 04/03/20 Reason for Admission: palpitations - Problems (1) PVC (premature ventricular contraction) Current Visit: Yes Status: Acute (2) Frequent PVCs Current Visit: Yes Status: Acute (3) Hypokalemia Current Visit: Yes Status: Acute (4) Pancreatic adenocarcinoma Current Visit: Yes Status: Acute (5) Chemotherapy adverse reaction Current Visit: Yes Status: Acute Brief History of Present Illness: 64-year-old female with past medical history of HTN, HLD, hypothyroidism on Synthroid replacement, history of pancreatic cancer started on chemo 6 weeks ago Q O2 weekly with Folfirinox, history of cardiac murmur , history of regular cardiology visits with scheduled Q 3 years stress test, last was 1 year ago and unremarkable. She has reportedly negative cardiac catheterization 4 years ago presented to the after developing intermittent palpitations, first noted during routine vitals checked at home found to have a heart rate to the 90s from a previous baseline more 60s. She subsequently developed intermittent palpitation radiating from the left side of the chest up to the neck area. She denies any actual chest pain. She states palpitation is fleeting and intermittent. She presented to the ER today after calling in a cafeteria supervisor and advice to come in for checkup. She states at home iliac today heart rate was as high as 120s. On arrival in the ED EKG is showing normal sinus reading with intermittent PVCs heart rate is ranging from 80s to 170s. She denies any shortness of breath. No leg swelling. She has a CTA with no evidence of pulmonary emboli seen. She has been admitted for rule out ACS She is a lifelong nonsmoker. She has a history for history of coronary artery disease in the father in his 70s. She denies any nausea or vomiting. Hospital Course: Patient was admitted for rule out ACS with palpitation. EKG shows intermittent PVCs. Serum potassium level was borderline low at 3.5. Magnesium and tsh within normal. Patient was given potassium replacement. Started on daily potassium tablet. She was ruled out with negative sets of cardiac enzymes. She feels better now will be discharged home today to remain on daily potassium and high potassium diet for now. Vital Signs/Physical Exam: Temp Pulse Resp BP Pulse Ox 97.4 F 82 16 131/70 99 04/02/20 23:00 04/02/20 23:00 04/02/20 23:00 04/02/20 23:00 04/02/20 23:00 General: In no apparent distress, Oriented x3 HEENT: Atraumatic, Normocephalic, PERRLA Neck: Supple, 2+ carotid pulse no bruit, JVD not distended Respiratory: Clear to auscultation bilaterally, Normal air movement Cardiovascular: Normal pulses, Regular rate/rhythm, Normal S1 S2 Gastrointestinal: Normal bowel sounds, Soft and benign, Non-distended Musculoskeletal: No clubbing, No swelling Integumentary: No rashes, No breakdown Laboratory Data at Discharge: WBC 10.7 K/uL (4.3-10.9) 04/02/20 17:10 Hgb 11.6 g/dL (12.0-15.0) L 04/02/20 17:10 Hct 33.8 % (36.0-45.0) L 04/02/20 17:10 Plt Count 157 K/uL (152-406) 04/02/20 17:10 PT 12.1 SECONDS (9.5-12.5) 04/02/20 17:10 INR 1.03 04/02/20 17:10 Sodium 143 mmol/L (136-145) 04/02/20 17:10 Potassium 3.5 mmol/L (3.5-5.1) 04/02/20 17:10 BUN 13 mg/dL (7-18) 04/02/20 17:10 Creatinine 0.77 mg/dL (0.55-1.3) 04/02/20 17:10 Glucose 103 mg/dL (74-106) 04/02/20 17:10 Magnesium 2.3 mg/dL (1.8-2.4) 04/02/20 17:10 Total Bilirubin 0.2 mg/dL (0.2-1.0) 04/02/20 17:10 AST 21 U/L (15-37) 04/02/20 17:10 ALT 63 U/L (12-78) 04/02/20 17:10 Alkaline Phosphatase 188 U/L (45-117) H 04/02/20 17:10 Troponin I < 0.02 ng/mL (0.0-0.045) 04/02/20 21:30 Home Medications: 60 Billion Probiotic 1 tab PO BEDTIME #0 04/03/20 Alprazolam [Xanax] 1 tab PO DAILY PRN 04/03/20 Ascorbic Acid [Vitamin C] 1 tab PO DAILY 04/03/20 Cholecalciferol (Vitamin D3) [Vitamin D3] 1 cap PO DAILY 04/03/20 Ferrous Fumarate/Vit Bcomp&C [Super B-Complex [place]] 1 tab PO DAILY 04/03/20 Hydrocodone Bit/Acetaminophen [Hydrocodon-Acetaminophen 5-325] 1 tab PO Q6HP PRN 04/03/20 Hyoscyamine Sulfate 1 tab PO Q4H PRN 04/03/20 Lipase/Protease/Amylase [Creon Dr 12,000 Units Capsule] 3 cap PO SEECOM 04/03/20 Magnesium Oxide [Magnesium] 1 tab PO BEDTIME 04/03/20 Melatonin 1 tab PO BEDTIME 04/03/20 Ondansetron [Ondansetron Odt] 1 tab PO Q4H PRN 04/03/20 One A Day Advanced Vitamin 1 tab PO DAILY 04/03/20 Potassium Chloride 10 meq PO DAILY #30 tablet.er 04/03/20 Thyroid,Pork [[employer] Thyroid] 1 tab PO DAILY 04/03/20 Thyroid,Pork [[employer] Thyroid] 60 mg PO DAILY 04/03/20 clonazePAM [Clonazepam] 2 tab PO BEDTIME 04/03/20 dexAMETHasone [Dexamethasone] 2 tab PO SEECOM 04/03/20 New Medications: 60 Billion Probiotic 1 tab PO BEDTIME #0 Potassium Chloride 10 meq PO DAILY #30 tablet.er Patient Discharge Instructions: -high potassium diet Diet: Regular Activity: Ad brenda Time spent managing pt's care (in minutes): 30
[2020-04-03 04:56] VITALS: BP 99/52; TEMP 97.1
[2020-04-03] MEDS ORDERED: THYROID 30 MG TAB PO SCH ×4 (06:30→09:00)
[2020-04-03] MEDS ORDERED: LIPASE/PROTEASE/AMYLASE CAP PO SCH (08:00)
[2020-04-03] MEDS ORDERED: clonazePAM 1 MG TAB PO SCH (09:00)
[2020-04-03] MEDS ORDERED: MAGNESIUM OXIDE 400 MG TAB PO SCH ×2 (09:00→21:00)
[2020-04-03] MEDS ORDERED: ASCORBIC ACID 500 MG TABLET PO SCH (09:00)
[2020-04-03] MEDS ORDERED: ENOXAPARIN 40 MG/0.4 ML SQ SCH (09:00)
[2020-04-03] MEDS ORDERED: POTASSIUM 25 MEQ EFFERV TAB PO SCH (09:00)
--- NOTE | 2020-04-04 11:14 | EKG ---
Test Date: 2020-04-02 Test Time: 16:53:13 Mortgage Loan Underwriter: HOMER MEASUREMENT RESULTS: Intervals: Rate: 94 UT: 144 QRSD: 78 QT: 372 QTc: 465 [place]: P: 39 UT: 144 QRS: 4 T: 20 INTERPRETIVE STATEMENTS: Sinus rhythm with marked sinus arrhythmia with premature supraventricular complexes Otherwise normal ECG No previous ECG available for comparison Electronically Signed On 04-04-20 11:13:28 CDT by Romeo Rubio
== END 2020-04-03 08:29 | disposition home or self-care (01) ==
LOC: ER 15:58 → ERHOLD 19:18 → 2ND 22:18
PROVIDERS: ADMIT Internal Medicine; ATTEND Internal Medicine
DX: I49.3 Ventricular premature depolarization (principal); E87.6 Hypokalemia; C25.0 Malignant neoplasm of head of pancreas; Z92.21 Personal history of antineoplastic chemotherapy; I10 Essential (primary) hypertension; E78.5 Hyperlipidemia, unspecified; E03.9 Hypothyroidism, unspecified; F41.8 Other specified anxiety disorders
CPT/HCPCS: 93005; 85025; 80048; 36415 ×2; 83735; 85610; 82565; 80076; 84443; 84484 ×3; 83880; 71275; 71045; 99285; Q9967; J7050; G0378 ×3; J7040